=== PATIENT | male | born 1955 | race Caucasian/White ===

== ENCOUNTER 2020-09-30 18:32 | Inpatient (IN) | payer BC, MEDICAID, SELFPAY ==
[~2020-09-30] VITALS: Ht 172.7 cm; Wt 89.8 kg
[2020-09-30 18:32] VITALS: BP_SYST 144
[2020-09-30 21:23] LABS: ANION GAP 12 (5-15); CALCIUM 7.9 mg/dL (8.4-11.0); CHLORIDE 100 mmol/L (98-107); CREATININE 1.04 mg/dL (0.55-1.30); GLUCOSE 308 mg/dL (70-99); POTASSIUM 3.4 mmol/L (3.5-5.1); SODIUM SERUM 136 mmol/L (136-145); UREA NITROGEN, BLOOD 18 mg/dL (8-21)
[2020-09-30 21:26] LABS: BASOPHILS % (AUTO) 0.2 % (0.0-2.0); EOSINOPHILS # (AUTO) 0.1 K/uL (0.0-0.4); LYMPHOCYTES # (AUTO) 0.8 K/uL (1.0-5.5); MONOCYTES # (AUTO) 0.3 K/uL (0.0-1.0); MONOCYTES % (AUTO) 3.7 % (1.7-9.3)
[2020-09-30 21:33] LABS: HEMATOCRIT 39.5 % (36-54); HEMOGLOBIN 13.4 g/dL (14.0-18.0); LYMPHOCYTES % (AUTO) 10.2 % (20.5-51.5); MEAN CORPUSCULAR HEMOGLOBIN 31 pg (27-31); MEAN CORPUSCULAR HGB CONC 34 % (32-36); MEAN CORPUSCULAR VOLUME 92 fL (79.0-98.0); NEUTROPHILS # (AUTO) 6.8 K/uL (1.8-7.7); NEUTROPHILS % (AUTO) 84.9 % (40.0-70.0); PLATELET COUNT (AUTO) 194 K/uL (130-430); RED CELL DISTRIBUTION WIDTH 13.5 % (9.0-15.0)
[2020-09-30 21:38] LABS: ALANINE AMINOTRANSFERASE 20 U/L (12-78); ALBUMIN 2.2 g/dL (3.4-4.8); ASPARTATE AMINOTRANSFERASE 16 U/L (10-37); TOTAL BILIRUBIN 0.6 mg/dL (0.0-1.0)
[2020-09-30 21:41] LABS: GFR AFRICAN AMERICAN 92 mL/min (>90)
[2020-09-30 21:42] LABS: ACETAMINOPHEN < 1 ug/mL (1-30); ALCOHOL, BLOOD < 3 mg/dL (<10)
[2020-09-30 22:35] LABS: INR 1.1 (0.80-1.20); PROTHROMBIN TIME 11.2 SECS (9.5-12.5)
[2020-10-01] MEDS ORDERED: cefTRIAXone 1 GM in D5W 50 ML IV ONE (01:00)
[2020-10-01] MEDS ORDERED: VANCOMYCIN HCL 1,000 MG in NS 250 ML IV ONE (01:00)
[2020-10-01] MEDS ORDERED: NACL 0.9% 1,000 ML IV ONE (01:00)
[2020-10-01] MEDS ORDERED: DEXAMETHASONE SOD PHOSPHATE 10 MG/ML VIAL IVP ONE (01:15)
[2020-10-01] MEDS ORDERED: VANCOMYCIN HCL 1000 MG/VIAL IV ONE (01:40)
[2020-10-01] MEDS ORDERED: cefTRIAXone 1 GM VIAL ONE (01:41)
[2020-10-01 01:44] LABS: CLARITY/URINE CLEAR (CLEAR); COLOR,URINE YELLOW (YELLOW); PH,URINE 5.5 (5.0-8.0)
[2020-10-01 01:45] LABS: BILIRUBIN,URINE NEGATIVE (NEGATIVE); BLOOD, URINE 1+ (NEGATIVE); GLUCOSE,URINE 3+ (NEGATIVE); KETONES,URINE 3+ (NEGATIVE); LEUKOCYTE ESTERASE ,URINE NEGATIVE (NEGATIVE); NITRITE, URINE NEGATIVE (NEGATIVE); PROTEIN URINE 1+ (NEGATIVE)
[2020-10-01 01:46] LABS: BACTERIA,URINE None Seen /HPF (None Seen); WBC,URINE 0-3 /HPF (0-3)
[2020-10-01] MEDS ORDERED: AZITHROMYCIN 500 MG/VIAL (ZITHROMAX) IV ONE (02:54)
[2020-10-01] MEDS: AZITHROMYCIN 500 MG in NS 250 ML IV SCH (05:16)
[2020-10-01] MEDS: ALBUTEROL SULFATE 0.083% 2.5 MG/3 ML VIAL.NEB INH SCH ×4 (07:00→19:00)
[2020-10-01] MEDS ORDERED: *LOVENOX 1MG/KG Q12H/PHARMACY XX ONE (08:30)
[2020-10-01] MEDS ORDERED: IPRATROPIUM/ALBUTEROL SULFATE 3 ML AMPUL.NEB (DUONEB) INH PRN (08:45)
[2020-10-01] MEDS: DEXAMETHASONE SOD PHOSPHATE 10 MG/ML VIAL IVP SCH (08:49)
[2020-10-01] MEDS: CHOLECALCIFEROL (VITAMIN D3) 5,000 UNIT TABLET PO SCH (09:00)
[2020-10-01] MEDS ORDERED: ALBUTEROL MDI INHALATION 8 GM INH INH SCH ×2 (09:00→19:00)
[2020-10-01] MEDS ORDERED: POTASSIUM CHLORIDE 40 MEQ in D5W 250 ML IV ONE (09:00)
[2020-10-01] MEDS: MAGNESIUM OXIDE 400 MG TABLET PO SCH ×2 (09:00→20:54)
[2020-10-01] MEDS: ENOXAPARIN SODIUM 100 MG/ML SYRINGE SUBCUT SCH ×2 (09:17→20:54)
[2020-10-01] MEDS: D5LR 1,000 ML IV SCH ×2 (09:17→21:09)
[2020-10-01] MEDS: cefTRIAXone 1 GM in D5W 50 ML IV SCH (10:52)
[2020-10-01] MEDS: IPRATROPIUM/ALBUTEROL SULFATE 3 ML AMPUL.NEB (DUONEB) INH SCH ×4 (11:00→23:00)
[2020-10-01 13:09] LABS: BASOPHILS % (AUTO) 0.9 % (0.0-2.0); EOSINOPHILS % (AUTO) 0.1 % (0.0-4.0); HEMATOCRIT 40.4 % (36-54); HEMOGLOBIN 13.5 g/dL (14.0-18.0); LYMPHOCYTES # (AUTO) 0.3 K/uL (1.0-5.5); LYMPHOCYTES % (AUTO) 5.7 % (20.5-51.5); MEAN CORPUSCULAR HEMOGLOBIN 31 pg (27-31); MEAN CORPUSCULAR HGB CONC 33 % (32-36); MEAN CORPUSCULAR VOLUME 93 fL (79.0-98.0); MONOCYTES # (AUTO) 0.1 K/uL (0.0-1.0); MONOCYTES % (AUTO) 1.7 % (1.7-9.3); NEUTROPHILS # (AUTO) 4.6 K/uL (1.8-7.7); NEUTROPHILS % (AUTO) 91.6 % (40.0-70.0); PLATELET COUNT (AUTO) 174 K/uL (130-430); RED BLOOD CELL COUNT(AUTO) 4.35 MIL/uL (4.2-6.2); RED CELL DISTRIBUTION WIDTH 13.9 % (9.0-15.0)
[2020-10-01 13:31] LABS: CALCIUM 8.4 mg/dL (8.4-11.0); CREATININE 1.14 mg/dL (0.55-1.30); POTASSIUM 4.3 mmol/L (3.5-5.1)
[2020-10-01] MEDS ORDERED: PROPOFOL DRIP 100 ML IV ONE (15:28)
[2020-10-01] MEDS ORDERED: fentaNYL CITRATE/PF 100 MCG/2 ML AMP ONE (15:36)
[2020-10-01 18:03] VITALS: BP_SYST 155
[2020-10-01] MEDS ORDERED: SODIUM BICARBONATE 8.4% VIAL 50 MEQ/50 ML VIAL INJ ONE (19:00)
[2020-10-01] MEDS ORDERED: ENOXAPARIN SODIUM 100 MG/ML SYRINGE ONE (20:35)
[2020-10-01] MEDS ORDERED: FAMOTIDINE PF 20 MG/2 ML VIAL ONE (22:18)
[2020-10-01] MEDS ORDERED: LORazepam 2 MG/ML VIAL IVP PRN (22:45)
[2020-10-01] MEDS: FAMOTIDINE PF 20 MG/2 ML VIAL IVP SCH (22:59)
[2020-10-02] MEDS: AZITHROMYCIN 500 MG in NS 250 ML IV SCH (01:20)
[2020-10-02] MEDS ORDERED: ACETAMINOPHEN 650 MG/20.3 ML UDC ONE ×3 (01:38→16:41)
[2020-10-02] MEDS ORDERED: LORazepam 2 MG/ML VIAL ONE (01:39)
[2020-10-02 01:44] LABS: BARBITURATE, URINE NEGATIVE (NEG <=200); BENZODIAZEPINE, URINE NEGATIVE (NEG <=150); CANNABINOID, URINE NEGATIVE (NEG <=50); COCAINE, URINE NEGATIVE (NEG <=150); METHAMPHETAMINES SCREEN,URINE NEGATIVE (NEG <=500); OPIATE, URINE NEGATIVE (NEG <=100); PHENCYCLIDINE SCREEN,URINE NEGATIVE (NEG <=25); UR TRICYCLIC ANTIDEPRESSANTS NEGATIVE (NEG <=300); URINE AMPHETAMINE NEGATIVE (NEG <=500); URINE METHADONE NEGATIVE (NEG <=200); URINE OXYCODONE SCREEN NEGATIVE (NEG <=100); URINE PROPOXYPHENE SCREEN NEGATIVE (NEG <=300)
[2020-10-02] MEDS: D5LR 1,000 ML IV SCH (04:45)
[2020-10-02] MEDS ORDERED: DEXAMETHASONE SOD PHOSPHATE 4 MG/ML VIAL ONE (06:11)
[2020-10-02 07:17] VITALS: BP_SYST 109
[2020-10-02 07:22] LABS: BASOPHILS % (AUTO) 0.3 % (0.0-2.0); HEMATOCRIT 39.7 % (36-54); HEMOGLOBIN 12.4 g/dL (14.0-18.0); LYMPHOCYTES # (AUTO) 0.5 K/uL (1.0-5.5); LYMPHOCYTES % (AUTO) 5.3 % (20.5-51.5); MEAN CORPUSCULAR HEMOGLOBIN 32 pg (27-31); MEAN CORPUSCULAR HGB CONC 31 % (32-36); MEAN CORPUSCULAR VOLUME 101 fL (79.0-98.0); MONOCYTES % (AUTO) 9.7 % (1.7-9.3); NEUTROPHILS # (AUTO) 8.8 K/uL (1.8-7.7); NEUTROPHILS % (AUTO) 84.7 % (40.0-70.0); PLATELET COUNT (AUTO) 206 K/uL (130-430); RED BLOOD CELL COUNT(AUTO) 3.94 MIL/uL (4.2-6.2); RED CELL DISTRIBUTION WIDTH 15.6 % (9.0-15.0); WHITE BLOOD COUNT (AUTO) 10.4 K/uL (4.8-10.8)
[2020-10-02] MEDS: ALBUTEROL SULFATE 0.083% 2.5 MG/3 ML VIAL.NEB INH SCH ×3 (08:05→15:15)
[2020-10-02] MEDS ORDERED: NS 500 ML IV SCH (08:45)
[2020-10-02] MEDS ORDERED: NACL 0.9% 1,000 ML IV SCH (08:45)
[2020-10-02] MEDS ORDERED: MAGNESIUM SULFATE 50 ML IV PRN (08:45)
[2020-10-02] MEDS ORDERED: DEXTROSE 50% JECT 50 ML DISP.SYRIN IVP PRN (08:45)
[2020-10-02] MEDS ORDERED: KCL 20 mEq in 100 mL (PREMIX) 100 ML IV PRN (08:45)
[2020-10-02 09:12] LABS: BASOPHILS % (AUTO) 0.3 % (0.0-2.0); HEMATOCRIT 40.2 % (36-54); HEMOGLOBIN 12.5 g/dL (14.0-18.0); LYMPHOCYTES # (AUTO) 0.6 K/uL (1.0-5.5); LYMPHOCYTES % (AUTO) 5.7 % (20.5-51.5); MEAN CORPUSCULAR HEMOGLOBIN 31 pg (27-31); MEAN CORPUSCULAR HGB CONC 31 % (32-36); MEAN CORPUSCULAR VOLUME 100 fL (79.0-98.0); MONOCYTES # (AUTO) 0.9 K/uL (0.0-1.0); MONOCYTES % (AUTO) 9.4 % (1.7-9.3); NEUTROPHILS # (AUTO) 8.4 K/uL (1.8-7.7); NEUTROPHILS % (AUTO) 84.6 % (40.0-70.0); PLATELET COUNT (AUTO) 217 K/uL (130-430); RED BLOOD CELL COUNT(AUTO) 4.03 MIL/uL (4.2-6.2); RED CELL DISTRIBUTION WIDTH 14.9 % (9.0-15.0)
[2020-10-02 09:38] LABS: ALANINE AMINOTRANSFERASE 23 U/L (12-78); ANION GAP 16 (5-15); CALCIUM 7.6 mg/dL (8.4-11.0); CHLORIDE 100 mmol/L (98-107); CREATININE 3.63 mg/dL (0.55-1.30); PHOSPHORUS 6.4 mg/dL (2.7-4.5); SODIUM SERUM 135 mmol/L (136-145); TOTAL BILIRUBIN 0.2 mg/dL (0.0-1.0); UREA NITROGEN, BLOOD 68 mg/dL (8-21)
[2020-10-02] MEDS ORDERED: INSULIN REGULAR, HUMAN 10 UNITS/0.1 ML INJ ONE (09:49)
[2020-10-02 10:12] LABS: GFR AFRICAN AMERICAN 22 mL/min (>90); GLUCOSE 1033 mg/dL (70-99)
[2020-10-02 10:13] LABS: ASPARTATE AMINOTRANSFERASE 37 U/L (10-37); POTASSIUM 6.1 mmol/L (3.5-5.1)
[2020-10-02 10:18] LABS: ACETONE, SERUM TRACE (NEGATIVE)
[2020-10-02] MEDS ORDERED: PROPOFOL DRIP 100 ML IV ONE ×3 (10:18→19:27)
[2020-10-02] MEDS: NACL 0.9% 1,000 ML IV SCH ×3 (11:10→23:20)
[2020-10-02 11:19] VITALS: BP_SYST 119
[2020-10-02] MEDS ORDERED: *HEPARIN PER PHARMACY XX ONE (11:45)
[2020-10-02] MEDS ORDERED: FAMOTIDINE PF 20 MG/2 ML VIAL ONE ×2 (11:50→22:05)
[2020-10-02] MEDS: DEXAMETHASONE SOD PHOSPHATE 10 MG/ML VIAL IVP SCH (11:51)
[2020-10-02] MEDS: FAMOTIDINE PF 20 MG/2 ML VIAL IVP SCH ×2 (11:52→22:12)
[2020-10-02] MEDS: CHOLECALCIFEROL (VITAMIN D3) 5,000 UNIT TABLET PO SCH (11:52)
[2020-10-02] MEDS: cefTRIAXone 1 GM in D5W 50 ML IV SCH (11:53)
[2020-10-02] MEDS: ACETAMINOPHEN 650 MG/20.3 ML UDC GT PRN ×2 (11:53→18:22)
[2020-10-02] MEDS: MAGNESIUM OXIDE 400 MG TABLET PO SCH (11:55)
[2020-10-02 12:51] LABS: CLARITY/URINE HAZY (CLEAR); COLOR,URINE STRAW (YELLOW)
[2020-10-02 12:53] LABS: PH,URINE 5.5 (5.0-8.0)
[2020-10-02 12:54] LABS: BILIRUBIN,URINE NEGATIVE (NEGATIVE); BLOOD, URINE 3+ (NEGATIVE); GLUCOSE,URINE NEGATIVE (NEGATIVE); KETONES,URINE TRACE (NEGATIVE); PROTEIN URINE NEGATIVE (NEGATIVE)
[2020-10-02 12:55] LABS: LEUKOCYTE ESTERASE ,URINE NEGATIVE (NEGATIVE); NITRITE, URINE NEGATIVE (NEGATIVE); UROBILINOGEN,URINE 0.2 (0.2-1.0)
[2020-10-02 12:57] LABS: BACTERIA,URINE None Seen /HPF (None Seen); TRICHOMONAS,URINE None Seen /HPF (None Seen); WBC,URINE NONE SEEN /HPF (0-3); YEAST,URINE None Seen /HPF (None Seen)
[2020-10-02 13:27] LABS: PROTHROMBIN TIME 10.5 SECS (9.5-12.5)
[2020-10-02] MEDS ORDERED: HEPARIN SODIUM,PORCINE 2000 UNITS/0.4 ML BOLUS IVP PRN (13:45)
[2020-10-02] MEDS ORDERED: HEPARIN SODIUM,PORCINE 3000 UNITS/0.6 ML BOLUS IVP PRN (13:45)
[2020-10-02] MEDS ORDERED: HEPARIN 25,000 UNITS in 250 ML PREMIX IV PRN (13:45)
[2020-10-02] MEDS ORDERED: HEPARIN SODIUM,PORCINE 5,000 UNITS/ML VIAL IVP ONE (14:00)
[2020-10-02 15:16] VITALS: BP_SYST 119
[2020-10-02] MEDS ORDERED: HEPARIN SODIUM,PORCINE 5,000 UNITS/ML VIAL ONE (15:54)
[2020-10-02 17:10] VITALS: BP_SYST 114
[2020-10-02 17:59] LABS: CREATININE 3.49 mg/dL (0.55-1.30); POTASSIUM 4.7 mmol/L (3.5-5.1)
[2020-10-02 22:00] VITALS: BP_SYST 136
[2020-10-02 22:16] LABS: CALCIUM 8.1 mg/dL (8.4-11.0); CREATININE 3.23 mg/dL (0.55-1.30); POTASSIUM 4.6 mmol/L (3.5-5.1)
[2020-10-02 23:15] VITALS: BP_SYST 122
[2020-10-03] VITALS (22 sets, daily range): BP systolic 109–166
[2020-10-03] MEDS ORDERED: INSULIN REGULAR, HUMAN 10 UNITS/0.1 ML INJ ONE (01:17)
[2020-10-03] MEDS: AZITHROMYCIN 500 MG in NS 250 ML IV SCH (01:53)
[2020-10-03 02:25] LABS: CREATININE 2.87 mg/dL (0.55-1.30); POTASSIUM 4.4 mmol/L (3.5-5.1)
[2020-10-03] MEDS: MAGNESIUM OXIDE 400 MG TABLET PO SCH ×2 (04:04→10:12)
[2020-10-03] MEDS: NACL 0.9% 1,000 ML IV SCH (06:43)
[2020-10-03 07:36] LABS: BASOPHILS % (AUTO) 0.2 % (0.0-2.0); EOSINOPHILS % (AUTO) 0.3 % (0.0-4.0); HEMATOCRIT 38.4 % (36-54); HEMOGLOBIN 12.7 g/dL (14.0-18.0); LYMPHOCYTES # (AUTO) 0.8 K/uL (1.0-5.5); LYMPHOCYTES % (AUTO) 8.2 % (20.5-51.5); MEAN CORPUSCULAR HEMOGLOBIN 31 pg (27-31); MEAN CORPUSCULAR HGB CONC 33 % (32-36); MEAN CORPUSCULAR VOLUME 94 fL (79.0-98.0); MONOCYTES # (AUTO) 0.7 K/uL (0.0-1.0); NEUTROPHILS # (AUTO) 8.3 K/uL (1.8-7.7); NEUTROPHILS % (AUTO) 84.3 % (40.0-70.0); PLATELET COUNT (AUTO) 165 K/uL (130-430); RED CELL DISTRIBUTION WIDTH 14.3 % (9.0-15.0); WHITE BLOOD COUNT (AUTO) 9.8 K/uL (4.8-10.8)
[2020-10-03 08:04] LABS: CALCIUM 7.8 mg/dL (8.4-11.0); CREATININE 2.44 mg/dL (0.55-1.30); PHOSPHORUS 4.2 mg/dL (2.7-4.5); POTASSIUM 4.2 mmol/L (3.5-5.1)
[2020-10-03 09:14] LABS: CALCIUM 7.6 mg/dL (8.4-11.0); CREATININE 2.25 mg/dL (0.55-1.30); POTASSIUM 4.3 mmol/L (3.5-5.1)
[2020-10-03] MEDS: FAMOTIDINE PF 20 MG/2 ML VIAL IVP SCH (10:11)
[2020-10-03] MEDS: cefTRIAXone 1 GM in D5W 50 ML IV SCH (10:12)
[2020-10-03] MEDS: CHOLECALCIFEROL (VITAMIN D3) 5,000 UNIT TABLET PO SCH (10:12)
[2020-10-03 13:17] LABS: C-REACTIVE PROTEIN QUANT 9.6 mg/dL (0-0.5)
[2020-10-03 14:21] LABS: CALCIUM 7.7 mg/dL (8.4-11.0); CREATININE 1.96 mg/dL (0.55-1.30); POTASSIUM 4.4 mmol/L (3.5-5.1)
[2020-10-03] MEDS: INSULIN REGULAR, HUMAN 100 UNITS in NS 99 ML IV PRN ×4 (15:39→18:44)
[2020-10-03] MEDS ORDERED: HEPARIN SODIUM,PORCINE 5,000 UNITS/ML VIAL IVP ONE (16:15)
[2020-10-03] MEDS: HEPARIN 25,000 UNITS in 250 ML PREMIX IV PRN (16:30)
[2020-10-03] MEDS: 0.45% NACL 1,000 ML IV SCH ×2 (16:32→22:44)
[2020-10-03 17:45] LABS: CALCIUM 7.8 mg/dL (8.4-11.0); CREATININE 1.69 mg/dL (0.55-1.30); POTASSIUM 4.5 mmol/L (3.5-5.1)
[2020-10-03 17:56] LABS: INR 1.1 (0.80-1.20); PROTHROMBIN TIME 11.3 SECS (9.5-12.5)
[2020-10-03] MEDS: DILTIAZEM HCL 25 MG/5 ML VIAL IVP PRN (18:44)
[2020-10-03] MEDS: PROPOFOL DRIP 100 ML IV PRN (21:52)
[2020-10-03 22:02] LABS: CALCIUM 7.9 mg/dL (8.4-11.0); CREATININE 1.6 mg/dL (0.55-1.30)
[2020-10-03 22:26] LABS: POTASSIUM 4.5 mmol/L (3.5-5.1)
[2020-10-03] MEDS: DILTIAZEM HCL 90 MG TABLET PO SCH (22:44)
[2020-10-03] MEDS: ACETAMINOPHEN 650 MG/20.3 ML UDC GT PRN (23:02)
[2020-10-03] MEDS ORDERED: ACETAMINOPHEN 650 MG/20.3 ML UDC ONE (23:02)
[2020-10-04] VITALS (31 sets, daily range): BP systolic 103–158
[2020-10-04 02:06] LABS: CALCIUM 7.6 mg/dL (8.4-11.0); CREATININE 1.52 mg/dL (0.55-1.30); POTASSIUM 4.6 mmol/L (3.5-5.1)
[2020-10-04] MEDS: AZITHROMYCIN 500 MG in NS 250 ML IV SCH (02:20)
[2020-10-04] MEDS: DILTIAZEM HCL 90 MG TABLET PO SCH ×3 (05:41→21:23)
[2020-10-04] MEDS: 0.45% NACL 1,000 ML IV SCH (05:41)
[2020-10-04] MEDS: ACETAMINOPHEN 650 MG/20.3 ML UDC GT PRN ×3 (06:55→22:50)
[2020-10-04 07:07] LABS: CALCIUM 7.9 mg/dL (8.4-11.0); CREATININE 1.42 mg/dL (0.55-1.30); POTASSIUM 4.6 mmol/L (3.5-5.1)
[2020-10-04] MEDS: IPRATROPIUM/ALBUTEROL SULFATE 3 ML AMPUL.NEB (DUONEB) INH SCH ×3 (08:05→15:15)
[2020-10-04] MEDS: CHOLECALCIFEROL (VITAMIN D3) 5,000 UNIT TABLET PO SCH (08:31)
[2020-10-04] MEDS: FAMOTIDINE PF 20 MG/2 ML VIAL IVP SCH (08:31)
[2020-10-04] MEDS ORDERED: GLUCOSE (DEXTROSE) ORAL GEL -Adults PO PRN (08:45)
[2020-10-04] MEDS ORDERED: D5W 1,000 ML IV PRN (08:45)
[2020-10-04] MEDS ORDERED: FUROSEMIDE 20 MG/2 ML VIAL IVP ONE (08:45)
[2020-10-04] MEDS ORDERED: DEXTROSE 50% JECT 50 ML DISP.SYRIN IVP PRN (08:45)
[2020-10-04] MEDS ORDERED: INSULIN REGULAR, HUMAN 100 UNITS/ML, 10 ML VIAL (humuLIN R) SUBCUT PRN (08:45)
[2020-10-04] MEDS ORDERED: INSULIN GLARGINE 100 UNITS/ML 10 ML VIAL SUBCUT SCH (09:00)
[2020-10-04 09:20] LABS: CALCIUM 7.9 mg/dL (8.4-11.0); CREATININE 1.41 mg/dL (0.55-1.30); POTASSIUM 4.7 mmol/L (3.5-5.1)
[2020-10-04] MEDS: cefTRIAXone 1 GM in D5W 50 ML IV SCH (09:25)
[2020-10-04] MEDS ORDERED: FUROSEMIDE 20 MG/2 ML VIAL ONE (09:32)
[2020-10-04] MEDS: PROPOFOL DRIP 100 ML IV PRN (10:30)
[2020-10-04] MEDS: INSULIN REGULAR, HUMAN 100 UNITS in NS 99 ML IV PRN ×2 (11:00)
[2020-10-04 13:31] LABS: CALCIUM 7.7 mg/dL (8.4-11.0); CREATININE 1.57 mg/dL (0.55-1.30); POTASSIUM 5.1 mmol/L (3.5-5.1)
[2020-10-04] MEDS: HEPARIN 25,000 UNITS in 250 ML PREMIX IV PRN (14:28)
[2020-10-04] MEDS ORDERED: INSULIN GLARGINE 100 UNITS/ML 10 ML VIAL SUBCUT ONE (16:45)
[2020-10-04] MEDS ORDERED: PANTOPRAZOLE SODIUM 40 MG/VIAL (PROTONIX) IVP ONE (17:00)
[2020-10-04] MEDS ORDERED: PANTOPRAZOLE SODIUM 40 MG/VIAL (PROTONIX) ONE (18:01)
[2020-10-04] MEDS: METOCLOPRAMIDE HCL 10 MG/2 ML VIAL IVP SCH (18:12)
[2020-10-04 19:19] LABS: CALCIUM 7.7 mg/dL (8.4-11.0); CREATININE 1.73 mg/dL (0.55-1.30)
[2020-10-04] MEDS: PANTOPRAZOLE SODIUM 40 MG/VIAL (PROTONIX) IVP SCH (20:08)
[2020-10-04] MEDS: MIDAZOLAM HCL IN 0.9 % NACL/PF 50 ML IV PRN (20:42)
[2020-10-04] MEDS: INSULIN REGULAR, HUMAN 100 UNITS/ML, 10 ML VIAL (humuLIN R) SUBCUT PRN (20:49)
[2020-10-04 22:48] LABS: CALCIUM 7.7 mg/dL (8.4-11.0); CREATININE 1.6 mg/dL (0.55-1.30)
[2020-10-05] VITALS (31 sets, daily range): BP systolic 97–121
[2020-10-05] MEDS: METOCLOPRAMIDE HCL 10 MG/2 ML VIAL IVP SCH ×4 (00:03→18:47)
[2020-10-05] MEDS: INSULIN REGULAR, HUMAN 100 UNITS/ML, 10 ML VIAL (humuLIN R) SUBCUT PRN ×5 (00:23→20:59)
[2020-10-05] MEDS: AZITHROMYCIN 500 MG in NS 250 ML IV SCH (01:15)
[2020-10-05] MEDS: MIDAZOLAM HCL IN 0.9 % NACL/PF 50 ML IV PRN ×3 (05:31→19:29)
[2020-10-05] MEDS: DILTIAZEM HCL 90 MG TABLET PO SCH ×2 (05:35→13:18)
[2020-10-05] MEDS: ACETAMINOPHEN 650 MG/20.3 ML UDC GT PRN ×2 (05:36→11:32)
[2020-10-05 06:02] LABS: BASOPHILS # (AUTO) 0.1 K/uL (0.0-0.2); BASOPHILS % (AUTO) 0.9 % (0.0-2.0); EOSINOPHILS % (AUTO) 0.3 % (0.0-4.0); HEMATOCRIT 37.8 % (36-54); HEMOGLOBIN 12.1 g/dL (14.0-18.0); LYMPHOCYTES # (AUTO) 1.6 K/uL (1.0-5.5); LYMPHOCYTES % (AUTO) 15.3 % (20.5-51.5); MEAN CORPUSCULAR HEMOGLOBIN 31 pg (27-31); MEAN CORPUSCULAR HGB CONC 32 % (32-36); MEAN CORPUSCULAR VOLUME 96 fL (79.0-98.0); MONOCYTES # (AUTO) 0.6 K/uL (0.0-1.0); MONOCYTES % (AUTO) 5.9 % (1.7-9.3); NEUTROPHILS % (AUTO) 77.6 % (40.0-70.0); PLATELET COUNT (AUTO) 110 K/uL (130-430); RED BLOOD CELL COUNT(AUTO) 3.94 MIL/uL (4.2-6.2); RED CELL DISTRIBUTION WIDTH 14.6 % (9.0-15.0); WHITE BLOOD COUNT (AUTO) 10.3 K/uL (4.8-10.8)
[2020-10-05 06:55] LABS: CALCIUM 7.8 mg/dL (8.4-11.0); CREATININE 1.82 mg/dL (0.55-1.30); PHOSPHORUS 4.2 mg/dL (2.7-4.5); POTASSIUM 5.2 mmol/L (3.5-5.1)
[2020-10-05] MEDS: PANTOPRAZOLE SODIUM 40 MG/VIAL (PROTONIX) IVP SCH ×2 (08:22→21:11)
[2020-10-05] MEDS: FAMOTIDINE PF 20 MG/2 ML VIAL IVP SCH (08:22)
[2020-10-05] MEDS: CHOLECALCIFEROL (VITAMIN D3) 5,000 UNIT TABLET PO SCH (08:23)
[2020-10-05] MEDS ORDERED: INSULIN GLARGINE 100 UNITS/ML 10 ML VIAL SUBCUT SCH ×2 (09:00→21:00)
[2020-10-05] MEDS: cefTRIAXone 1 GM in D5W 50 ML IV SCH (10:00)
[2020-10-05] MEDS ORDERED: D5W 500 ML IV ONE (11:45)
[2020-10-05] MEDS ORDERED: THIAMINE HCL 100 MG in NS 50 ML IV ONE (12:30)
[2020-10-05] MEDS ORDERED: INSULIN GLARGINE 100 UNITS/ML 10 ML VIAL SUBCUT ONE (12:30)
[2020-10-05] MEDS ORDERED: ASPIRIN 81 MG TABLET(ECOTRIN) PO ONE (14:15)
[2020-10-05] MEDS ORDERED: ASPIRIN 81 MG TAB.CHEW ONE (15:08)
[2020-10-05 17:44] LABS: CALCIUM 7.4 mg/dL (8.4-11.0); CREATININE 1.65 mg/dL (0.55-1.30); POTASSIUM 4.8 mmol/L (3.5-5.1)
[2020-10-05 21:06] LABS: CALCIUM 7.6 mg/dL (8.4-11.0); CREATININE 1.62 mg/dL (0.55-1.30); POTASSIUM 4.6 mmol/L (3.5-5.1)
[2020-10-05] MEDS: INSULIN GLARGINE 100 UNITS/ML 10 ML VIAL SUBCUT SCH (21:11)
[2020-10-06] VITALS (34 sets, daily range): BP systolic 92–131
[2020-10-06] MEDS: METOCLOPRAMIDE HCL 10 MG/2 ML VIAL IVP SCH ×5 (00:11→23:55)
[2020-10-06] MEDS: DILTIAZEM HCL 90 MG TABLET PO SCH ×4 (00:11→20:58)
[2020-10-06] MEDS: ACETAMINOPHEN 650 MG/20.3 ML UDC GT PRN ×2 (00:12→06:20)
[2020-10-06] MEDS: INSULIN REGULAR, HUMAN 100 UNITS/ML, 10 ML VIAL (humuLIN R) SUBCUT PRN ×4 (00:27→16:54)
[2020-10-06 06:44] LABS: BASOPHILS # (AUTO) 0.1 K/uL (0.0-0.2); BASOPHILS % (AUTO) 1.2 % (0.0-2.0); EOSINOPHILS # (AUTO) 0.1 K/uL (0.0-0.4); EOSINOPHILS % (AUTO) 0.6 % (0.0-4.0); HEMOGLOBIN 12.4 g/dL (14.0-18.0); LYMPHOCYTES # (AUTO) 1.2 K/uL (1.0-5.5); LYMPHOCYTES % (AUTO) 11.6 % (20.5-51.5); MEAN CORPUSCULAR HEMOGLOBIN 31 pg (27-31); MEAN CORPUSCULAR HGB CONC 33 % (32-36); MEAN CORPUSCULAR VOLUME 94 fL (79.0-98.0); MONOCYTES # (AUTO) 0.4 K/uL (0.0-1.0); MONOCYTES % (AUTO) 3.9 % (1.7-9.3); NEUTROPHILS # (AUTO) 8.6 K/uL (1.8-7.7); NEUTROPHILS % (AUTO) 82.7 % (40.0-70.0); PLATELET COUNT (AUTO) 83 K/uL (130-430); RED BLOOD CELL COUNT(AUTO) 4.04 MIL/uL (4.2-6.2); RED CELL DISTRIBUTION WIDTH 14.2 % (9.0-15.0); WHITE BLOOD COUNT (AUTO) 10.4 K/uL (4.8-10.8)
[2020-10-06 07:20] LABS: CALCIUM 7.7 mg/dL (8.4-11.0); CREATININE 1.45 mg/dL (0.55-1.30); PHOSPHORUS 1.9 mg/dL (2.7-4.5); POTASSIUM 4.8 mmol/L (3.5-5.1)
[2020-10-06] MEDS: CHOLECALCIFEROL (VITAMIN D3) 5,000 UNIT TABLET PO SCH (09:00)
[2020-10-06] MEDS: ASPIRIN 81 MG TABLET(ECOTRIN) PO SCH (10:00)
[2020-10-06] MEDS: PANTOPRAZOLE SODIUM 40 MG/VIAL (PROTONIX) IVP SCH ×2 (10:00→20:55)
[2020-10-06] MEDS: FAMOTIDINE PF 20 MG/2 ML VIAL IVP SCH (10:00)
[2020-10-06] MEDS: INSULIN GLARGINE 100 UNITS/ML 10 ML VIAL SUBCUT SCH ×2 (11:00→21:03)
[2020-10-06] MEDS: cefTRIAXone 1 GM in D5W 50 ML IV SCH (11:16)
[2020-10-06] MEDS: THIAMINE HCL 100 MG TABLET GT SCH (11:18)
[2020-10-06] MEDS ORDERED: METOPROLOL TARTRATE 5 MG/5 ML VIAL IVP PRN (12:30)
[2020-10-06] MEDS ORDERED: DEXAMETHASONE SOD PHOSPHATE 10 MG/ML VIAL IVP SCH (13:00)
[2020-10-06] MEDS ORDERED: DEXAMETHASONE SOD PHOSPHATE 10 MG/ML VIAL IVP ONE (13:00)
[2020-10-06 15:15] LABS: PROTHROMBIN TIME 10.5 SECS (9.5-12.5)
[2020-10-06 15:31] LABS: FIBRINOGEN 444 mg/dL (200-400)
[2020-10-06] MEDS: DEXAMETHASONE SOD PHOSPHATE 10 MG/ML VIAL IVP SCH (20:47)
[2020-10-07] VITALS (33 sets, daily range): BP systolic 95–121
[2020-10-07] MEDS: INSULIN REGULAR, HUMAN 100 UNITS/ML, 10 ML VIAL (humuLIN R) SUBCUT PRN ×6 (00:23→20:45)
[2020-10-07] MEDS: DEXAMETHASONE SOD PHOSPHATE 10 MG/ML VIAL IVP SCH ×3 (04:17→20:07)
[2020-10-07] MEDS: ACETAMINOPHEN 650 MG/20.3 ML UDC GT PRN (04:41)
[2020-10-07 06:52] LABS: BASOPHILS % (AUTO) 0.5 % (0.0-2.0); HEMATOCRIT 36.1 % (36-54); HEMOGLOBIN 11.8 g/dL (14.0-18.0); LYMPHOCYTES # (AUTO) 0.4 K/uL (1.0-5.5); LYMPHOCYTES % (AUTO) 5.8 % (20.5-51.5); MEAN CORPUSCULAR HEMOGLOBIN 31 pg (27-31); MEAN CORPUSCULAR HGB CONC 33 % (32-36); MEAN CORPUSCULAR VOLUME 94 fL (79.0-98.0); MONOCYTES # (AUTO) 0.2 K/uL (0.0-1.0); MONOCYTES % (AUTO) 2.6 % (1.7-9.3); NEUTROPHILS # (AUTO) 6.6 K/uL (1.8-7.7); PLATELET COUNT (AUTO) 59 K/uL (130-430); RED BLOOD CELL COUNT(AUTO) 3.85 MIL/uL (4.2-6.2); RED CELL DISTRIBUTION WIDTH 13.6 % (9.0-15.0); WHITE BLOOD COUNT (AUTO) 7.3 K/uL (4.8-10.8)
[2020-10-07] MEDS ORDERED: METOCLOPRAMIDE HCL 10 MG/2 ML VIAL ONE (06:53)
[2020-10-07] MEDS: METOCLOPRAMIDE HCL 10 MG/2 ML VIAL IVP SCH ×3 (06:53→17:07)
[2020-10-07] MEDS: DILTIAZEM HCL 90 MG TABLET PO SCH ×3 (06:53→22:36)
[2020-10-07 07:43] LABS: ALBUMIN 1.5 g/dL (3.4-4.8); CALCIUM 7.8 mg/dL (8.4-11.0); CREATININE 1.79 mg/dL (0.55-1.30); POTASSIUM 5.4 mmol/L (3.5-5.1); TOTAL BILIRUBIN 0.2 mg/dL (0.0-1.0)
[2020-10-07] MEDS: FAMOTIDINE PF 20 MG/2 ML VIAL IVP SCH (08:12)
[2020-10-07] MEDS: PANTOPRAZOLE SODIUM 40 MG/VIAL (PROTONIX) IVP SCH ×2 (08:12→20:08)
[2020-10-07] MEDS: ASPIRIN 81 MG TABLET(ECOTRIN) PO SCH (08:12)
[2020-10-07] MEDS: THIAMINE HCL 100 MG TABLET GT SCH (08:12)
[2020-10-07] MEDS: INSULIN GLARGINE 100 UNITS/ML 10 ML VIAL SUBCUT SCH ×2 (08:14→20:48)
[2020-10-07] MEDS: CHOLECALCIFEROL (VITAMIN D3) 5,000 UNIT TABLET PO SCH (08:17)
[2020-10-07] MEDS: cefTRIAXone 1 GM in D5W 50 ML IV SCH (08:45)
[2020-10-07] MEDS ORDERED: INSULIN GLARGINE 100 UNITS/ML 10 ML VIAL SUBCUT ONE (09:00)
[2020-10-07] MEDS: 0.45% NACL 1,000 ML IV SCH ×2 (09:00→17:07)
[2020-10-07] MEDS ORDERED: SODIUM POLYSTYRENE SULFONATE 15 GM/60 ML UDBTL PO ONE (11:45)
[2020-10-07] MEDS ORDERED: LEVOFLOXACIN 500 MG/D5W 100 ML IV SCH (12:00)
[2020-10-07] MEDS ORDERED: DEXAMETHASONE SOD PHOSPHATE 4 MG/ML VIAL ONE ×2 (12:57→13:01)
[2020-10-07] MEDS ORDERED: DEXAMETHASONE SOD PHOSPHATE 10 MG/ML VIAL ONE ×2 (13:04→20:03)
[2020-10-07 13:34] LABS: NEUTROPHILS % (AUTO) 91.1 % (40.0-70.0)
[2020-10-07] MEDS: CEFEPIME 1 GM in D5W 50 ML IV SCH (15:30)
[2020-10-07] MEDS: MIDAZOLAM HCL IN 0.9 % NACL/PF 50 ML IV PRN (17:18)
[2020-10-07] MEDS ORDERED: INSULIN REGULAR, HUMAN 100 UNITS/ML, 10 ML VIAL SUBCUT ONE (18:15)
[2020-10-07] MEDS ORDERED: INSULIN GLARGINE 100 UNITS/ML 10 ML VIAL SUBCUT SCH (21:00)
[2020-10-08] VITALS (31 sets, daily range): BP systolic 90–128
[2020-10-08] MEDS: METOCLOPRAMIDE HCL 10 MG/2 ML VIAL IVP SCH ×5 (00:27→23:00)
[2020-10-08] MEDS: 0.45% NACL 1,000 ML IV SCH ×4 (00:28→17:34)
[2020-10-08] MEDS: INSULIN REGULAR, HUMAN 100 UNITS/ML, 10 ML VIAL (humuLIN R) SUBCUT PRN ×6 (00:46→20:43)
[2020-10-08] MEDS ORDERED: DEXAMETHASONE SOD PHOSPHATE 4 MG/ML VIAL ONE ×2 (03:41→20:18)
[2020-10-08] MEDS: DEXAMETHASONE SOD PHOSPHATE 10 MG/ML VIAL IVP SCH ×3 (03:43→20:24)
[2020-10-08] MEDS: DILTIAZEM HCL 90 MG TABLET PO SCH ×3 (05:21→23:00)
[2020-10-08 07:01] LABS: BASOPHILS % (AUTO) 0.3 % (0.0-2.0); HEMATOCRIT 32.7 % (36-54); HEMOGLOBIN 10.7 g/dL (14.0-18.0); LYMPHOCYTES # (AUTO) 0.5 K/uL (1.0-5.5); LYMPHOCYTES % (AUTO) 7.1 % (20.5-51.5); MEAN CORPUSCULAR HEMOGLOBIN 31 pg (27-31); MEAN CORPUSCULAR HGB CONC 33 % (32-36); MEAN CORPUSCULAR VOLUME 94 fL (79.0-98.0); MONOCYTES # (AUTO) 0.3 K/uL (0.0-1.0); MONOCYTES % (AUTO) 4.5 % (1.7-9.3); NEUTROPHILS # (AUTO) 5.6 K/uL (1.8-7.7); NEUTROPHILS % (AUTO) 88.1 % (40.0-70.0); PLATELET COUNT (AUTO) 52 K/uL (130-430); RED BLOOD CELL COUNT(AUTO) 3.49 MIL/uL (4.2-6.2); RED CELL DISTRIBUTION WIDTH 13.7 % (9.0-15.0); WHITE BLOOD COUNT (AUTO) 6.4 K/uL (4.8-10.8)
[2020-10-08 07:24] LABS: ALBUMIN 1.4 g/dL (3.4-4.8); CALCIUM 7.5 mg/dL (8.4-11.0); CREATININE 1.57 mg/dL (0.55-1.30); POTASSIUM 4.5 mmol/L (3.5-5.1); TOTAL BILIRUBIN 0.3 mg/dL (0.0-1.0)
[2020-10-08] MEDS: ASPIRIN 81 MG TABLET(ECOTRIN) PO SCH (08:55)
[2020-10-08] MEDS: THIAMINE HCL 100 MG TABLET GT SCH (08:56)
[2020-10-08] MEDS: FAMOTIDINE PF 20 MG/2 ML VIAL IVP SCH (08:56)
[2020-10-08] MEDS: PANTOPRAZOLE SODIUM 40 MG/VIAL (PROTONIX) IVP SCH ×2 (08:56→20:21)
[2020-10-08] MEDS: CHOLECALCIFEROL (VITAMIN D3) 5,000 UNIT TABLET PO SCH (09:00)
[2020-10-08] MEDS: INSULIN GLARGINE 100 UNITS/ML 10 ML VIAL SUBCUT SCH ×2 (09:05→20:41)
[2020-10-08] MEDS ORDERED: DEXAMETHASONE SOD PHOSPHATE 10 MG/ML VIAL ONE (11:23)
[2020-10-08] MEDS: CEFEPIME 1 GM in D5W 50 ML IV SCH (14:13)
[2020-10-09] VITALS (30 sets, daily range): BP systolic 111–160
[2020-10-09] MEDS: 0.45% NACL 1,000 ML IV SCH ×4 (00:44→22:47)
[2020-10-09] MEDS: INSULIN REGULAR, HUMAN 100 UNITS/ML, 10 ML VIAL (humuLIN R) SUBCUT PRN ×7 (00:55→23:59)
[2020-10-09] MEDS ORDERED: DEXAMETHASONE SOD PHOSPHATE 4 MG/ML VIAL ONE (04:30)
[2020-10-09] MEDS: DEXAMETHASONE SOD PHOSPHATE 10 MG/ML VIAL IVP SCH ×3 (04:31→20:00)
[2020-10-09] MEDS: METOCLOPRAMIDE HCL 10 MG/2 ML VIAL IVP SCH ×4 (06:00→23:44)
[2020-10-09] MEDS: DILTIAZEM HCL 90 MG TABLET PO SCH ×3 (06:00→21:52)
[2020-10-09 06:52] LABS: BASOPHILS % (AUTO) 0.2 % (0.0-2.0); HEMATOCRIT 30.9 % (36-54); HEMOGLOBIN 10.5 g/dL (14.0-18.0); LYMPHOCYTES # (AUTO) 0.5 K/uL (1.0-5.5); LYMPHOCYTES % (AUTO) 5.9 % (20.5-51.5); MEAN CORPUSCULAR HEMOGLOBIN 31 pg (27-31); MEAN CORPUSCULAR HGB CONC 34 % (32-36); MEAN CORPUSCULAR VOLUME 92 fL (79.0-98.0); MONOCYTES # (AUTO) 0.3 K/uL (0.0-1.0); MONOCYTES % (AUTO) 4.5 % (1.7-9.3); NEUTROPHILS % (AUTO) 89.4 % (40.0-70.0); RED BLOOD CELL COUNT(AUTO) 3.37 MIL/uL (4.2-6.2); RED CELL DISTRIBUTION WIDTH 13.4 % (9.0-15.0); WHITE BLOOD COUNT (AUTO) 7.8 K/uL (4.8-10.8)
[2020-10-09 07:16] LABS: CALCIUM 7.4 mg/dL (8.4-11.0); CREATININE 1.26 mg/dL (0.55-1.30); POTASSIUM 4.5 mmol/L (3.5-5.1)
[2020-10-09] MEDS: THIAMINE HCL 100 MG TABLET GT SCH (09:51)
[2020-10-09] MEDS: FAMOTIDINE PF 20 MG/2 ML VIAL IVP SCH (09:51)
[2020-10-09] MEDS: ASPIRIN 81 MG TABLET(ECOTRIN) PO SCH (09:51)
[2020-10-09] MEDS: PANTOPRAZOLE SODIUM 40 MG/VIAL (PROTONIX) IVP SCH ×2 (09:51→21:52)
[2020-10-09] MEDS: CHOLECALCIFEROL (VITAMIN D3) 5,000 UNIT TABLET PO SCH (09:53)
[2020-10-09] MEDS: INSULIN GLARGINE 100 UNITS/ML 10 ML VIAL SUBCUT SCH ×2 (09:55→21:00)
[2020-10-09] MEDS ORDERED: DEXAMETHASONE SOD PHOSPHATE 10 MG/ML VIAL ONE (12:00)
[2020-10-09 14:18] LABS: PLATELET COUNT (AUTO) 55 K/uL (130-430)
[2020-10-09] MEDS: CEFEPIME 1 GM in D5W 50 ML IV SCH (14:44)
[2020-10-10] VITALS (29 sets, daily range): BP systolic 120–155
[2020-10-10] MEDS ORDERED: DEXAMETHASONE SOD PHOSPHATE 4 MG/ML VIAL ONE ×3 (02:21→20:17)
[2020-10-10] MEDS: DEXAMETHASONE SOD PHOSPHATE 10 MG/ML VIAL IVP SCH ×3 (03:32→20:18)
[2020-10-10] MEDS: INSULIN REGULAR, HUMAN 100 UNITS/ML, 10 ML VIAL (humuLIN R) SUBCUT PRN ×4 (03:49→19:44)
[2020-10-10] MEDS: 0.45% NACL 1,000 ML IV SCH ×2 (04:54→12:41)
[2020-10-10] MEDS: DILTIAZEM HCL 90 MG TABLET PO SCH ×3 (04:54→22:07)
[2020-10-10] MEDS: METOCLOPRAMIDE HCL 10 MG/2 ML VIAL IVP SCH ×3 (05:01→18:00)
[2020-10-10 07:50] LABS: ALBUMIN 1.7 g/dL (3.4-4.8); CALCIUM 7.5 mg/dL (8.4-11.0); CREATININE 1.01 mg/dL (0.55-1.30); POTASSIUM 4.8 mmol/L (3.5-5.1); TOTAL BILIRUBIN 0.3 mg/dL (0.0-1.0)
[2020-10-10 08:26] LABS: BASOPHILS % (AUTO) 0.2 % (0.0-2.0); HEMATOCRIT 33.9 % (36-54); HEMOGLOBIN 11.4 g/dL (14.0-18.0); LYMPHOCYTES # (AUTO) 0.5 K/uL (1.0-5.5); LYMPHOCYTES % (AUTO) 4.8 % (20.5-51.5); MEAN CORPUSCULAR HEMOGLOBIN 31 pg (27-31); MEAN CORPUSCULAR HGB CONC 34 % (32-36); MEAN CORPUSCULAR VOLUME 92 fL (79.0-98.0); MONOCYTES # (AUTO) 0.6 K/uL (0.0-1.0); MONOCYTES % (AUTO) 5.7 % (1.7-9.3); NEUTROPHILS # (AUTO) 9.5 K/uL (1.8-7.7); NEUTROPHILS % (AUTO) 89.3 % (40.0-70.0); PLATELET COUNT (AUTO) 57 K/uL (130-430); RED BLOOD CELL COUNT(AUTO) 3.67 MIL/uL (4.2-6.2); RED CELL DISTRIBUTION WIDTH 13.5 % (9.0-15.0); WHITE BLOOD COUNT (AUTO) 10.7 K/uL (4.8-10.8)
[2020-10-10] MEDS: ASPIRIN 81 MG TABLET(ECOTRIN) PO SCH (09:12)
[2020-10-10] MEDS: FAMOTIDINE PF 20 MG/2 ML VIAL IVP SCH ×2 (09:13→20:15)
[2020-10-10] MEDS: PANTOPRAZOLE SODIUM 40 MG/VIAL (PROTONIX) IVP SCH (09:13)
[2020-10-10] MEDS: THIAMINE HCL 100 MG TABLET GT SCH (09:13)
[2020-10-10] MEDS: ENOXAPARIN SODIUM 40 MG/0.4 ML SYRINGE SUBCUT SCH (09:13)
[2020-10-10] MEDS: CHOLECALCIFEROL (VITAMIN D3) 5,000 UNIT TABLET PO SCH (10:03)
[2020-10-10] MEDS: INSULIN GLARGINE 100 UNITS/ML 10 ML VIAL SUBCUT SCH ×2 (10:30→20:20)
[2020-10-10] MEDS: LEVOFLOXACIN 500 MG/D5W 100 ML IV SCH (15:00)
[2020-10-10] MEDS ORDERED: DILTIAZEM HCL 30 MG TABLET ONE (15:14)
[2020-10-10] MEDS ORDERED: DILTIAZEM HCL 60 MG TABLET ONE (15:15)
[2020-10-11] VITALS (34 sets, daily range): BP systolic 125–180
[2020-10-11] MEDS: METOCLOPRAMIDE HCL 10 MG/2 ML VIAL IVP SCH ×4 (00:03→17:49)
[2020-10-11] MEDS: INSULIN REGULAR, HUMAN 100 UNITS/ML, 10 ML VIAL (humuLIN R) SUBCUT PRN ×5 (00:21→18:06)
[2020-10-11] MEDS ORDERED: DEXAMETHASONE SOD PHOSPHATE 4 MG/ML VIAL ONE ×3 (05:27→20:57)
[2020-10-11] MEDS: DEXAMETHASONE SOD PHOSPHATE 10 MG/ML VIAL IVP SCH ×3 (05:29→21:00)
[2020-10-11] MEDS: DILTIAZEM HCL 90 MG TABLET PO SCH ×3 (05:30→21:00)
[2020-10-11] MEDS: 0.45% NACL 1,000 ML IV SCH ×2 (05:48→12:31)
[2020-10-11] MEDS: ALBUTEROL SULFATE 0.083% 2.5 MG/3 ML VIAL.NEB INH SCH ×3 (07:00→15:00)
[2020-10-11] MEDS: IPRATROPIUM/ALBUTEROL SULFATE 3 ML AMPUL.NEB (DUONEB) INH SCH ×3 (07:00→15:00)
[2020-10-11 08:50] LABS: ALBUMIN 1.7 g/dL (3.4-4.8); CALCIUM 7.2 mg/dL (8.4-11.0); CREATININE 0.88 mg/dL (0.55-1.30); PHOSPHORUS 3.6 mg/dL (2.7-4.5); POTASSIUM 4.7 mmol/L (3.5-5.1); TOTAL BILIRUBIN 0.3 mg/dL (0.0-1.0)
[2020-10-11 09:14] LABS: BASOPHILS % (AUTO) 0.1 % (0.0-2.0); HEMATOCRIT 31.2 % (36-54); HEMOGLOBIN 10.4 g/dL (14.0-18.0); LYMPHOCYTES # (AUTO) 0.5 K/uL (1.0-5.5); LYMPHOCYTES % (AUTO) 3.6 % (20.5-51.5); MEAN CORPUSCULAR HEMOGLOBIN 31 pg (27-31); MEAN CORPUSCULAR HGB CONC 34 % (32-36); MEAN CORPUSCULAR VOLUME 92 fL (79.0-98.0); MONOCYTES # (AUTO) 0.7 K/uL (0.0-1.0); MONOCYTES % (AUTO) 4.7 % (1.7-9.3); NEUTROPHILS # (AUTO) 13.5 K/uL (1.8-7.7); NEUTROPHILS % (AUTO) 91.6 % (40.0-70.0); RED BLOOD CELL COUNT(AUTO) 3.39 MIL/uL (4.2-6.2); RED CELL DISTRIBUTION WIDTH 13.1 % (9.0-15.0)
[2020-10-11] MEDS: ASPIRIN 81 MG TABLET(ECOTRIN) PO SCH (09:48)
[2020-10-11] MEDS: ENOXAPARIN SODIUM 40 MG/0.4 ML SYRINGE SUBCUT SCH (09:48)
[2020-10-11] MEDS: FAMOTIDINE PF 20 MG/2 ML VIAL IVP SCH ×2 (09:49→21:00)
[2020-10-11] MEDS: THIAMINE HCL 100 MG TABLET GT SCH (09:49)
[2020-10-11] MEDS: CHOLECALCIFEROL (VITAMIN D3) 5,000 UNIT TABLET PO SCH (09:49)
[2020-10-11] MEDS: INSULIN GLARGINE 100 UNITS/ML 10 ML VIAL SUBCUT SCH ×2 (09:53→21:03)
[2020-10-11 09:55] LABS: WHITE BLOOD COUNT (AUTO) 14.7 K/uL (4.8-10.8)
[2020-10-11 12:49] LABS: PLATELET COUNT (AUTO) 56 K/uL (130-430)
[2020-10-11] MEDS: LEVOFLOXACIN 500 MG/D5W 100 ML IV SCH (15:00)
[2020-10-12] VITALS (32 sets, daily range): BP systolic 130–157
[2020-10-12] MEDS: METOCLOPRAMIDE HCL 10 MG/2 ML VIAL IVP SCH ×4 (00:41→17:32)
[2020-10-12] MEDS: INSULIN REGULAR, HUMAN 100 UNITS/ML, 10 ML VIAL (humuLIN R) SUBCUT PRN ×3 (01:13→17:34)
[2020-10-12] MEDS ORDERED: DEXAMETHASONE SOD PHOSPHATE 4 MG/ML VIAL ONE (05:34)
[2020-10-12] MEDS: DEXAMETHASONE SOD PHOSPHATE 10 MG/ML VIAL IVP SCH ×2 (05:35→12:46)
[2020-10-12] MEDS: DILTIAZEM HCL 90 MG TABLET PO SCH ×3 (05:37→21:53)
[2020-10-12] MEDS: 0.45% NACL 1,000 ML IV SCH (08:22)
[2020-10-12] MEDS: THIAMINE HCL 100 MG TABLET GT SCH (08:23)
[2020-10-12] MEDS: ENOXAPARIN SODIUM 40 MG/0.4 ML SYRINGE SUBCUT SCH (08:23)
[2020-10-12] MEDS: ASPIRIN 81 MG TABLET(ECOTRIN) PO SCH (08:23)
[2020-10-12] MEDS: CHOLECALCIFEROL (VITAMIN D3) 5,000 UNIT TABLET PO SCH (08:23)
[2020-10-12] MEDS: FAMOTIDINE PF 20 MG/2 ML VIAL IVP SCH ×2 (08:23→21:49)
[2020-10-12] MEDS: INSULIN GLARGINE 100 UNITS/ML 10 ML VIAL SUBCUT SCH ×2 (08:25→21:57)
[2020-10-12] MEDS: LEVOFLOXACIN 500 MG/D5W 100 ML IV SCH (15:00)
[2020-10-12] MEDS: DEXAMETHASONE SOD PHOSPHATE 4 MG/ML VIAL IVP SCH (22:00)
[2020-10-13] VITALS (31 sets, daily range): BP systolic 124–157
[2020-10-13] MEDS: INSULIN REGULAR, HUMAN 100 UNITS/ML, 10 ML VIAL (humuLIN R) SUBCUT PRN ×3 (02:47→23:50)
[2020-10-13] MEDS: METOCLOPRAMIDE HCL 10 MG/2 ML VIAL IVP SCH ×5 (02:51→22:56)
[2020-10-13] MEDS: DEXAMETHASONE SOD PHOSPHATE 4 MG/ML VIAL IVP SCH ×3 (06:00→22:53)
[2020-10-13] MEDS: DILTIAZEM HCL 90 MG TABLET PO SCH ×3 (06:51→22:55)
[2020-10-13 07:26] LABS: BASOPHILS % (AUTO) 0.1 % (0.0-2.0); EOSINOPHILS % (AUTO) 0.1 % (0.0-4.0); HEMATOCRIT 29.2 % (36-54); HEMOGLOBIN 9.8 g/dL (14.0-18.0); LYMPHOCYTES # (AUTO) 0.9 K/uL (1.0-5.5); MEAN CORPUSCULAR HEMOGLOBIN 30 pg (27-31); MEAN CORPUSCULAR HGB CONC 33 % (32-36); MEAN CORPUSCULAR VOLUME 91 fL (79.0-98.0); MONOCYTES # (AUTO) 0.6 K/uL (0.0-1.0); MONOCYTES % (AUTO) 4.3 % (1.7-9.3); NEUTROPHILS # (AUTO) 11.8 K/uL (1.8-7.7); NEUTROPHILS % (AUTO) 88.5 % (40.0-70.0); PLATELET COUNT (AUTO) 66 K/uL (130-430); RED BLOOD CELL COUNT(AUTO) 3.21 MIL/uL (4.2-6.2); RED CELL DISTRIBUTION WIDTH 13.5 % (9.0-15.0); WHITE BLOOD COUNT (AUTO) 13.3 K/uL (4.8-10.8)
[2020-10-13 07:54] LABS: ALBUMIN 1.7 g/dL (3.4-4.8); CALCIUM 7.7 mg/dL (8.4-11.0); CREATININE 0.78 mg/dL (0.55-1.30); POTASSIUM 4.2 mmol/L (3.5-5.1); TOTAL BILIRUBIN 0.3 mg/dL (0.0-1.0)
[2020-10-13] MEDS: ENOXAPARIN SODIUM 40 MG/0.4 ML SYRINGE SUBCUT SCH (09:00)
[2020-10-13] MEDS: ASPIRIN 81 MG TABLET(ECOTRIN) PO SCH (09:00)
[2020-10-13] MEDS: THIAMINE HCL 100 MG TABLET GT SCH (10:22)
[2020-10-13] MEDS: CHOLECALCIFEROL (VITAMIN D3) 5,000 UNIT TABLET PO SCH (10:22)
[2020-10-13] MEDS: FAMOTIDINE PF 20 MG/2 ML VIAL IVP SCH ×2 (10:22→21:00)
[2020-10-13] MEDS: INSULIN GLARGINE 100 UNITS/ML 10 ML VIAL SUBCUT SCH ×2 (10:24→21:00)
[2020-10-13] MEDS ORDERED: ASPIRIN 81 MG TAB.CHEW ONE (10:44)
[2020-10-13] MEDS: 0.45% NACL 1,000 ML IV SCH (11:56)
[2020-10-13] MEDS: LEVOFLOXACIN 500 MG/D5W 100 ML IV SCH (14:01)
[2020-10-13] MEDS ORDERED: DEXAMETHASONE SOD PHOSPHATE 10 MG/ML VIAL ONE (14:01)
[2020-10-13] MEDS ORDERED: DEXAMETHASONE SOD PHOSPHATE 4 MG/ML VIAL ONE (22:45)
[2020-10-14] VITALS (27 sets, daily range): BP systolic 110–163
[2020-10-14] MEDS ORDERED: DEXAMETHASONE SOD PHOSPHATE 4 MG/ML VIAL ONE ×2 (04:45→21:02)
[2020-10-14] MEDS ORDERED: METOCLOPRAMIDE HCL 10 MG/2 ML VIAL ONE (04:47)
[2020-10-14] MEDS: METOCLOPRAMIDE HCL 10 MG/2 ML VIAL IVP SCH ×3 (04:50→17:05)
[2020-10-14] MEDS: DILTIAZEM HCL 90 MG TABLET PO SCH ×2 (04:50→13:17)
[2020-10-14] MEDS: DEXAMETHASONE SOD PHOSPHATE 4 MG/ML VIAL IVP SCH ×2 (04:50→14:00)
[2020-10-14] MEDS: INSULIN REGULAR, HUMAN 100 UNITS/ML, 10 ML VIAL (humuLIN R) SUBCUT PRN ×3 (06:15→17:14)
[2020-10-14 06:33] LABS: BASOPHILS # (AUTO) 0.1 K/uL (0.0-0.2); BASOPHILS % (AUTO) 0.5 % (0.0-2.0); HEMOGLOBIN 10.4 g/dL (14.0-18.0); LYMPHOCYTES # (AUTO) 0.8 K/uL (1.0-5.5); LYMPHOCYTES % (AUTO) 6.8 % (20.5-51.5); MEAN CORPUSCULAR HEMOGLOBIN 31 pg (27-31); MEAN CORPUSCULAR HGB CONC 33 % (32-36); MEAN CORPUSCULAR VOLUME 92 fL (79.0-98.0); MONOCYTES # (AUTO) 0.4 K/uL (0.0-1.0); MONOCYTES % (AUTO) 3.6 % (1.7-9.3); NEUTROPHILS # (AUTO) 10.7 K/uL (1.8-7.7); PLATELET COUNT (AUTO) 70 K/uL (130-430); RED BLOOD CELL COUNT(AUTO) 3.36 MIL/uL (4.2-6.2); RED CELL DISTRIBUTION WIDTH 13.6 % (9.0-15.0)
[2020-10-14 07:02] LABS: CALCIUM 7.7 mg/dL (8.4-11.0); CREATININE 0.76 mg/dL (0.55-1.30); POTASSIUM 4.4 mmol/L (3.5-5.1)
[2020-10-14] MEDS: THIAMINE HCL 100 MG TABLET GT SCH (08:44)
[2020-10-14] MEDS: ASPIRIN 81 MG TABLET(ECOTRIN) PO SCH (08:44)
[2020-10-14] MEDS: FAMOTIDINE PF 20 MG/2 ML VIAL IVP SCH ×2 (08:44→21:40)
[2020-10-14] MEDS: ENOXAPARIN SODIUM 40 MG/0.4 ML SYRINGE SUBCUT SCH (08:44)
[2020-10-14] MEDS: CHOLECALCIFEROL (VITAMIN D3) 5,000 UNIT TABLET PO SCH (08:44)
[2020-10-14] MEDS: INSULIN GLARGINE 100 UNITS/ML 10 ML VIAL SUBCUT SCH ×2 (08:45→21:44)
[2020-10-14] MEDS: 0.45% NACL 1,000 ML IV SCH (11:40)
[2020-10-14 14:03] LABS: NEUTROPHILS % (AUTO) 89.1 % (40.0-70.0)
[2020-10-14] MEDS: LEVOFLOXACIN 500 MG/D5W 100 ML IV SCH (15:00)
[2020-10-14] MEDS ORDERED: DEXAMETHASONE SOD PHOSPHATE 10 MG/ML VIAL ONE (17:04)
[2020-10-15] VITALS (29 sets, daily range): BP systolic 112–216
[2020-10-15] MEDS: INSULIN REGULAR, HUMAN 100 UNITS/ML, 10 ML VIAL (humuLIN R) SUBCUT PRN ×4 (02:43→17:47)
[2020-10-15] MEDS: DILTIAZEM HCL 90 MG TABLET PO SCH ×4 (06:00→23:18)
[2020-10-15] MEDS: METOCLOPRAMIDE HCL 10 MG/2 ML VIAL IVP SCH ×3 (06:00→17:39)
[2020-10-15] MEDS: DEXAMETHASONE SOD PHOSPHATE 4 MG/ML VIAL IVP SCH ×4 (06:00→21:00)
[2020-10-15] MEDS ORDERED: DEXAMETHASONE SOD PHOSPHATE 4 MG/ML VIAL ONE ×2 (06:54→15:01)
[2020-10-15] MEDS: ENOXAPARIN SODIUM 40 MG/0.4 ML SYRINGE SUBCUT SCH (09:00)
[2020-10-15] MEDS: FAMOTIDINE PF 20 MG/2 ML VIAL IVP SCH ×2 (10:51→21:00)
[2020-10-15] MEDS: CHOLECALCIFEROL (VITAMIN D3) 5,000 UNIT TABLET PO SCH (10:51)
[2020-10-15] MEDS: ASPIRIN 81 MG TABLET(ECOTRIN) PO SCH (10:51)
[2020-10-15] MEDS: THIAMINE HCL 100 MG TABLET GT SCH (10:52)
[2020-10-15] MEDS: INSULIN GLARGINE 100 UNITS/ML 10 ML VIAL SUBCUT SCH ×2 (10:55→21:00)
[2020-10-15] MEDS ORDERED: METOPROLOL TARTRATE 5 MG/5 ML VIAL ONE (15:05)
[2020-10-15] MEDS: LEVOFLOXACIN 500 MG/D5W 100 ML IV SCH (15:09)
[2020-10-15] MEDS: 0.45% NACL 1,000 ML IV SCH (15:10)
[2020-10-16] VITALS (27 sets, daily range): BP systolic 115–176
[2020-10-16] MEDS: INSULIN REGULAR, HUMAN 100 UNITS/ML, 10 ML VIAL (humuLIN R) SUBCUT PRN ×3 (00:57→18:46)
[2020-10-16] MEDS: DILTIAZEM HCL 90 MG TABLET PO SCH ×3 (06:00→22:00)
[2020-10-16] MEDS: METOCLOPRAMIDE HCL 10 MG/2 ML VIAL IVP SCH ×4 (06:42→18:43)
[2020-10-16 07:28] LABS: CALCIUM 7.8 mg/dL (8.4-11.0); CREATININE 0.73 mg/dL (0.55-1.30); POTASSIUM 4.3 mmol/L (3.5-5.1)
[2020-10-16 07:56] LABS: BASOPHILS # (AUTO) 0.1 K/uL (0.0-0.2); BASOPHILS % (AUTO) 0.4 % (0.0-2.0); HEMATOCRIT 29.8 % (36-54); HEMOGLOBIN 9.9 g/dL (14.0-18.0); LYMPHOCYTES # (AUTO) 0.8 K/uL (1.0-5.5); LYMPHOCYTES % (AUTO) 6.7 % (20.5-51.5); MEAN CORPUSCULAR HEMOGLOBIN 31 pg (27-31); MEAN CORPUSCULAR HGB CONC 33 % (32-36); MEAN CORPUSCULAR VOLUME 93 fL (79.0-98.0); MONOCYTES # (AUTO) 0.6 K/uL (0.0-1.0); NEUTROPHILS # (AUTO) 10.9 K/uL (1.8-7.7); PLATELET COUNT (AUTO) 77 K/uL (130-430); RED BLOOD CELL COUNT(AUTO) 3.21 MIL/uL (4.2-6.2); RED CELL DISTRIBUTION WIDTH 13.8 % (9.0-15.0); WHITE BLOOD COUNT (AUTO) 12.4 K/uL (4.8-10.8)
[2020-10-16] MEDS: INSULIN GLARGINE 100 UNITS/ML 10 ML VIAL SUBCUT SCH ×2 (09:00→21:00)
[2020-10-16] MEDS: DEXAMETHASONE SOD PHOSPHATE 4 MG/ML VIAL IVP SCH ×2 (11:19→21:00)
[2020-10-16] MEDS: THIAMINE HCL 100 MG TABLET GT SCH (11:19)
[2020-10-16] MEDS: CHOLECALCIFEROL (VITAMIN D3) 5,000 UNIT TABLET PO SCH (11:19)
[2020-10-16] MEDS: FAMOTIDINE PF 20 MG/2 ML VIAL IVP SCH ×2 (11:19→21:00)
[2020-10-16] MEDS: ASPIRIN 81 MG TABLET(ECOTRIN) PO SCH (11:19)
[2020-10-16] MEDS: ENOXAPARIN SODIUM 40 MG/0.4 ML SYRINGE SUBCUT SCH (11:20)
[2020-10-16 14:51] LABS: NEUTROPHILS % (AUTO) 87.9 % (40.0-70.0)
[2020-10-16] MEDS: LEVOFLOXACIN 500 MG/D5W 100 ML IV SCH (16:30)
[2020-10-16] MEDS: 0.45% NACL 1,000 ML IV SCH (17:48)
[2020-10-16] MEDS: ALBUTEROL MDI INHALATION 8 GM INH INH SCH (19:00)
[2020-10-17] VITALS (31 sets, daily range): BP systolic 100–150
[2020-10-17] MEDS: METOCLOPRAMIDE HCL 10 MG/2 ML VIAL IVP SCH ×4 (00:56→17:48)
[2020-10-17] MEDS: ALBUTEROL MDI INHALATION 8 GM INH INH SCH (03:00)
[2020-10-17] MEDS: DILTIAZEM HCL 90 MG TABLET PO SCH ×3 (05:46→21:51)
[2020-10-17] MEDS: INSULIN REGULAR, HUMAN 100 UNITS/ML, 10 ML VIAL (humuLIN R) SUBCUT PRN ×2 (06:24→12:11)
[2020-10-17] MEDS: ASPIRIN 81 MG TABLET(ECOTRIN) PO SCH (07:53)
[2020-10-17] MEDS: THIAMINE HCL 100 MG TABLET GT SCH (07:53)
[2020-10-17] MEDS: DEXAMETHASONE SOD PHOSPHATE 4 MG/ML VIAL IVP SCH ×2 (07:53→21:47)
[2020-10-17] MEDS: FAMOTIDINE PF 20 MG/2 ML VIAL IVP SCH ×2 (07:53→21:48)
[2020-10-17] MEDS: CHOLECALCIFEROL (VITAMIN D3) 5,000 UNIT TABLET PO SCH (07:53)
[2020-10-17] MEDS: ENOXAPARIN SODIUM 40 MG/0.4 ML SYRINGE SUBCUT SCH (07:56)
[2020-10-17] MEDS: INSULIN GLARGINE 100 UNITS/ML 10 ML VIAL SUBCUT SCH ×2 (07:56→22:31)
[2020-10-17] MEDS: 0.45% NACL 1,000 ML IV SCH (12:21)
[2020-10-18] VITALS (29 sets, daily range): BP systolic 109–160
[2020-10-18] MEDS: METOCLOPRAMIDE HCL 10 MG/2 ML VIAL IVP SCH ×5 (00:39→23:55)
[2020-10-18] MEDS: INSULIN REGULAR, HUMAN 100 UNITS/ML, 10 ML VIAL (humuLIN R) SUBCUT PRN ×4 (06:10→23:59)
[2020-10-18] MEDS: DILTIAZEM HCL 90 MG TABLET PO SCH ×3 (06:11→21:30)
[2020-10-18] MEDS: ALBUTEROL MDI INHALATION 8 GM INH INH SCH ×4 (07:00→19:50)
[2020-10-18] MEDS: IPRATROPIUM/ALBUTEROL SULFATE 3 ML AMPUL.NEB (DUONEB) INH SCH ×5 (07:00→23:00)
[2020-10-18 07:09] LABS: HEPATITIS B CORE AB, TOTAL Negative (Negative); HEPATITIS B SURFACE AG Negative (Negative); HEPATITIS C VIRUS AB <0.1 s/co ratio (0.0-0.9)
[2020-10-18 07:12] LABS: HEMATOCRIT 28.9 % (36-54); HEMOGLOBIN 9.5 g/dL (14.0-18.0); LYMPHOCYTES # (AUTO) 0.6 K/uL (1.0-5.5); LYMPHOCYTES % (AUTO) 4.2 % (20.5-51.5); MEAN CORPUSCULAR HEMOGLOBIN 31 pg (27-31); MEAN CORPUSCULAR HGB CONC 33 % (32-36); MEAN CORPUSCULAR VOLUME 93 fL (79.0-98.0); MONOCYTES # (AUTO) 0.5 K/uL (0.0-1.0); MONOCYTES % (AUTO) 3.5 % (1.7-9.3); NEUTROPHILS # (AUTO) 12.3 K/uL (1.8-7.7); NEUTROPHILS % (AUTO) 92.3 % (40.0-70.0); PLATELET COUNT (AUTO) 77 K/uL (130-430); RED BLOOD CELL COUNT(AUTO) 3.11 MIL/uL (4.2-6.2); RED CELL DISTRIBUTION WIDTH 14.4 % (9.0-15.0); WHITE BLOOD COUNT (AUTO) 13.3 K/uL (4.8-10.8)
[2020-10-18] MEDS: ASPIRIN 81 MG TABLET(ECOTRIN) PO SCH (08:44)
[2020-10-18] MEDS: INSULIN GLARGINE 100 UNITS/ML 10 ML VIAL SUBCUT SCH ×2 (08:44→21:35)
[2020-10-18] MEDS: CHOLECALCIFEROL (VITAMIN D3) 5,000 UNIT TABLET PO SCH (08:44)
[2020-10-18] MEDS: DEXAMETHASONE SOD PHOSPHATE 4 MG/ML VIAL IVP SCH ×2 (08:44→21:11)
[2020-10-18] MEDS: THIAMINE HCL 100 MG TABLET GT SCH (08:44)
[2020-10-18] MEDS: FAMOTIDINE PF 20 MG/2 ML VIAL IVP SCH ×2 (08:44→21:11)
[2020-10-18] MEDS: ENOXAPARIN SODIUM 40 MG/0.4 ML SYRINGE SUBCUT SCH (08:47)
[2020-10-18] MEDS: 0.45% NACL 1,000 ML IV SCH (11:04)
[2020-10-18] MEDS: LEVOFLOXACIN 500 MG/D5W 100 ML IV SCH (14:24)
[2020-10-19] VITALS (27 sets, daily range): BP systolic 104–162
[2020-10-19] MEDS: ALBUTEROL MDI INHALATION 8 GM INH INH SCH ×7 (00:14→23:30)
[2020-10-19] MEDS: IPRATROPIUM/ALBUTEROL SULFATE 3 ML AMPUL.NEB (DUONEB) INH SCH ×4 (03:00→23:00)
[2020-10-19] MEDS: METOCLOPRAMIDE HCL 10 MG/2 ML VIAL IVP SCH ×3 (06:04→17:15)
[2020-10-19] MEDS: DILTIAZEM HCL 90 MG TABLET PO SCH ×3 (06:05→21:53)
[2020-10-19] MEDS: INSULIN REGULAR, HUMAN 100 UNITS/ML, 10 ML VIAL (humuLIN R) SUBCUT PRN ×3 (06:37→17:16)
[2020-10-19] MEDS: DEXAMETHASONE SOD PHOSPHATE 4 MG/ML VIAL IVP SCH (08:11)
[2020-10-19] MEDS: FAMOTIDINE PF 20 MG/2 ML VIAL IVP SCH ×2 (08:11→21:43)
[2020-10-19] MEDS: CHOLECALCIFEROL (VITAMIN D3) 5,000 UNIT TABLET PO SCH (08:11)
[2020-10-19] MEDS: THIAMINE HCL 100 MG TABLET GT SCH (08:11)
[2020-10-19] MEDS: ENOXAPARIN SODIUM 40 MG/0.4 ML SYRINGE SUBCUT SCH (08:11)
[2020-10-19] MEDS: ASPIRIN 81 MG TABLET(ECOTRIN) PO SCH (08:11)
[2020-10-19] MEDS: INSULIN GLARGINE 100 UNITS/ML 10 ML VIAL SUBCUT SCH ×2 (08:11→21:49)
[2020-10-19] MEDS: 0.45% NACL 1,000 ML IV SCH (11:14)
[2020-10-19] MEDS ORDERED: DEXAMETHASONE SOD PHOSPHATE 4 MG/ML VIAL IVP ONE (11:15)
[2020-10-19] MEDS ORDERED: DILTIAZEM HCL 60 MG TABLET ONE (13:11)
[2020-10-19] MEDS: LEVOFLOXACIN 500 MG/D5W 100 ML IV SCH (15:00)
[2020-10-20] VITALS (22 sets, daily range): BP systolic 108–145
[2020-10-20] MEDS: METOCLOPRAMIDE HCL 10 MG/2 ML VIAL IVP SCH ×4 (01:44→17:24)
[2020-10-20] MEDS: IPRATROPIUM/ALBUTEROL SULFATE 3 ML AMPUL.NEB (DUONEB) INH SCH ×6 (03:00→23:00)
[2020-10-20] MEDS: ALBUTEROL MDI INHALATION 8 GM INH INH SCH ×6 (04:30→23:14)
[2020-10-20] MEDS: DILTIAZEM HCL 90 MG TABLET PO SCH ×3 (05:41→22:31)
[2020-10-20] MEDS: INSULIN REGULAR, HUMAN 100 UNITS/ML, 10 ML VIAL (humuLIN R) SUBCUT PRN ×2 (05:45→17:55)
[2020-10-20 06:56] LABS: BASOPHILS % (AUTO) 0.2 % (0.0-2.0); HEMATOCRIT 30.4 % (36-54); HEMOGLOBIN 10.1 g/dL (14.0-18.0); LYMPHOCYTES % (AUTO) 5.7 % (20.5-51.5); MEAN CORPUSCULAR HEMOGLOBIN 31 pg (27-31); MEAN CORPUSCULAR HGB CONC 33 % (32-36); MEAN CORPUSCULAR VOLUME 93 fL (79.0-98.0); MONOCYTES # (AUTO) 0.6 K/uL (0.0-1.0); MONOCYTES % (AUTO) 3.4 % (1.7-9.3); NEUTROPHILS # (AUTO) 15.1 K/uL (1.8-7.7); NEUTROPHILS % (AUTO) 90.7 % (40.0-70.0); PLATELET COUNT (AUTO) 90 K/uL (130-430); RED BLOOD CELL COUNT(AUTO) 3.28 MIL/uL (4.2-6.2); RED CELL DISTRIBUTION WIDTH 14.6 % (9.0-15.0); WHITE BLOOD COUNT (AUTO) 16.6 K/uL (4.8-10.8)
[2020-10-20] MEDS ORDERED: DEXAMETHASONE SOD PHOSPHATE 4 MG/ML VIAL INH ONE (08:45)
[2020-10-20] MEDS: CHOLECALCIFEROL (VITAMIN D3) 5,000 UNIT TABLET PO SCH (08:46)
[2020-10-20] MEDS: FAMOTIDINE PF 20 MG/2 ML VIAL IVP SCH ×2 (08:46→22:28)
[2020-10-20] MEDS: ASPIRIN 81 MG TABLET(ECOTRIN) PO SCH (08:46)
[2020-10-20] MEDS: THIAMINE HCL 100 MG TABLET GT SCH (08:46)
[2020-10-20] MEDS: INSULIN GLARGINE 100 UNITS/ML 10 ML VIAL SUBCUT SCH ×2 (08:47→22:19)
[2020-10-20] MEDS: ENOXAPARIN SODIUM 40 MG/0.4 ML SYRINGE SUBCUT SCH (08:49)
[2020-10-20] MEDS: 0.45% NACL 1,000 ML IV SCH (12:32)
[2020-10-20] MEDS: LEVOFLOXACIN 500 MG/D5W 100 ML IV SCH (14:10)
[2020-10-21] VITALS (19 sets, daily range): BP systolic 115–162
[2020-10-21] MEDS: METOCLOPRAMIDE HCL 10 MG/2 ML VIAL IVP SCH ×4 (02:10→17:23)
[2020-10-21] MEDS: IPRATROPIUM/ALBUTEROL SULFATE 3 ML AMPUL.NEB (DUONEB) INH SCH (03:00)
[2020-10-21] MEDS: ALBUTEROL MDI INHALATION 8 GM INH INH SCH ×6 (03:30→22:40)
[2020-10-21] MEDS: DILTIAZEM HCL 90 MG TABLET PO SCH ×2 (06:55→15:09)
[2020-10-21] MEDS: INSULIN REGULAR, HUMAN 100 UNITS/ML, 10 ML VIAL (humuLIN R) SUBCUT PRN (07:13)
[2020-10-21] MEDS ORDERED: DEXAMETHASONE SOD PHOSPHATE 4 MG/ML VIAL INH SCH (09:00)
[2020-10-21] MEDS: CHOLECALCIFEROL (VITAMIN D3) 5,000 UNIT TABLET PO SCH (10:29)
[2020-10-21] MEDS: ASPIRIN 81 MG TABLET(ECOTRIN) PO SCH (10:29)
[2020-10-21] MEDS: THIAMINE HCL 100 MG TABLET GT SCH (10:30)
[2020-10-21] MEDS: ENOXAPARIN SODIUM 40 MG/0.4 ML SYRINGE SUBCUT SCH (10:31)
[2020-10-21] MEDS: FAMOTIDINE PF 20 MG/2 ML VIAL IVP SCH (10:35)
[2020-10-21] MEDS: INSULIN GLARGINE 100 UNITS/ML 10 ML VIAL SUBCUT SCH (10:38)
[2020-10-21] MEDS: cloNIDine HCL 0.1 MG TABLET PO PRN (11:51)
[2020-10-21] MEDS: 0.45% NACL 1,000 ML IV SCH (12:35)
[2020-10-21] MEDS: LEVOFLOXACIN 500 MG/D5W 100 ML IV SCH (15:09)
[2020-10-22] VITALS (27 sets, daily range): BP systolic 126–155
[2020-10-22] MEDS: INSULIN GLARGINE 100 UNITS/ML 10 ML VIAL SUBCUT SCH ×3 (00:06→21:12)
[2020-10-22] MEDS: FAMOTIDINE PF 20 MG/2 ML VIAL IVP SCH ×3 (00:13→21:07)
[2020-10-22] MEDS: DILTIAZEM HCL 90 MG TABLET PO SCH ×4 (00:16→21:45)
[2020-10-22] MEDS ORDERED: METOCLOPRAMIDE HCL 10 MG/2 ML VIAL ONE (00:20)
[2020-10-22] MEDS: METOCLOPRAMIDE HCL 10 MG/2 ML VIAL IVP SCH ×4 (00:21→18:12)
[2020-10-22] MEDS: INSULIN REGULAR, HUMAN 100 UNITS/ML, 10 ML VIAL (humuLIN R) SUBCUT PRN ×4 (02:00→18:17)
[2020-10-22] MEDS: ALBUTEROL MDI INHALATION 8 GM INH INH SCH ×6 (02:24→23:20)
[2020-10-22] MEDS: ENOXAPARIN SODIUM 40 MG/0.4 ML SYRINGE SUBCUT SCH (10:55)
[2020-10-22] MEDS: THIAMINE HCL 100 MG TABLET GT SCH (10:56)
[2020-10-22] MEDS: CHOLECALCIFEROL (VITAMIN D3) 5,000 UNIT TABLET PO SCH (10:56)
[2020-10-22] MEDS: ASPIRIN 81 MG TABLET(ECOTRIN) PO SCH (10:56)
[2020-10-22] MEDS: LEVOFLOXACIN 500 MG/D5W 100 ML IV SCH (15:40)
[2020-10-22] MEDS: 0.45% NACL 1,000 ML IV SCH (15:43)
[2020-10-23] VITALS (31 sets, daily range): BP systolic 140–161
[2020-10-23] MEDS: METOCLOPRAMIDE HCL 10 MG/2 ML VIAL IVP SCH ×4 (02:10→17:38)
[2020-10-23] MEDS: ALBUTEROL MDI INHALATION 8 GM INH INH SCH ×6 (02:32→22:43)
[2020-10-23] MEDS: DILTIAZEM HCL 90 MG TABLET PO SCH ×3 (06:00→23:11)
[2020-10-23 06:31] LABS: BASOPHILS % (AUTO) 0.2 % (0.0-2.0); EOSINOPHILS % (AUTO) 0.2 % (0.0-4.0); HEMATOCRIT 28.3 % (36-54); HEMOGLOBIN 9.6 g/dL (14.0-18.0); LYMPHOCYTES # (AUTO) 0.7 K/uL (1.0-5.5); LYMPHOCYTES % (AUTO) 9.1 % (20.5-51.5); MEAN CORPUSCULAR HEMOGLOBIN 31 pg (27-31); MEAN CORPUSCULAR HGB CONC 34 % (32-36); MEAN CORPUSCULAR VOLUME 92 fL (79.0-98.0); MONOCYTES # (AUTO) 0.2 K/uL (0.0-1.0); MONOCYTES % (AUTO) 2.7 % (1.7-9.3); NEUTROPHILS # (AUTO) 6.9 K/uL (1.8-7.7); NEUTROPHILS % (AUTO) 87.8 % (40.0-70.0); PLATELET COUNT (AUTO) 80 K/uL (130-430); RED BLOOD CELL COUNT(AUTO) 3.08 MIL/uL (4.2-6.2); RED CELL DISTRIBUTION WIDTH 14.8 % (9.0-15.0); WHITE BLOOD COUNT (AUTO) 7.8 K/uL (4.8-10.8)
[2020-10-23 07:09] LABS: CREATININE 0.69 mg/dL (0.55-1.30); POTASSIUM 4.1 mmol/L (3.5-5.1)
[2020-10-23] MEDS: THIAMINE HCL 100 MG TABLET GT SCH (08:07)
[2020-10-23] MEDS: CHOLECALCIFEROL (VITAMIN D3) 5,000 UNIT TABLET PO SCH (08:08)
[2020-10-23] MEDS: ASPIRIN 81 MG TABLET(ECOTRIN) PO SCH (08:08)
[2020-10-23] MEDS: FAMOTIDINE PF 20 MG/2 ML VIAL IVP SCH ×2 (08:08→23:12)
[2020-10-23] MEDS: INSULIN GLARGINE 100 UNITS/ML 10 ML VIAL SUBCUT SCH ×2 (08:09→23:08)
[2020-10-23] MEDS: ENOXAPARIN SODIUM 40 MG/0.4 ML SYRINGE SUBCUT SCH (08:10)
[2020-10-23] MEDS: 0.45% NACL 1,000 ML IV SCH (13:41)
[2020-10-23] MEDS: LEVOFLOXACIN 500 MG/D5W 100 ML IV SCH (14:34)
[2020-10-23] MEDS: IPRATROPIUM/ALBUTEROL SULFATE 3 ML AMPUL.NEB (DUONEB) INH SCH (15:00)
[2020-10-23] MEDS: INSULIN REGULAR, HUMAN 100 UNITS/ML, 10 ML VIAL (humuLIN R) SUBCUT PRN (17:46)
[2020-10-24] VITALS (21 sets, daily range): BP systolic 126–161
[2020-10-24] MEDS: METOCLOPRAMIDE HCL 10 MG/2 ML VIAL IVP SCH ×5 (01:21→23:37)
[2020-10-24] MEDS: ALBUTEROL MDI INHALATION 8 GM INH INH SCH ×5 (03:30→23:00)
[2020-10-24] MEDS: DILTIAZEM HCL 90 MG TABLET PO SCH ×3 (06:36→21:34)
[2020-10-24] MEDS: INSULIN REGULAR, HUMAN 100 UNITS/ML, 10 ML VIAL (humuLIN R) SUBCUT PRN ×3 (07:27→18:21)
[2020-10-24] MEDS: CHOLECALCIFEROL (VITAMIN D3) 5,000 UNIT TABLET PO SCH (09:35)
[2020-10-24] MEDS: THIAMINE HCL 100 MG TABLET GT SCH (09:35)
[2020-10-24] MEDS: ASPIRIN 81 MG TABLET(ECOTRIN) PO SCH (09:35)
[2020-10-24] MEDS: FAMOTIDINE PF 20 MG/2 ML VIAL IVP SCH ×2 (09:35→21:34)
[2020-10-24] MEDS: INSULIN GLARGINE 100 UNITS/ML 10 ML VIAL SUBCUT SCH ×2 (09:41→21:39)
[2020-10-24] MEDS: ENOXAPARIN SODIUM 40 MG/0.4 ML SYRINGE SUBCUT SCH (09:42)
[2020-10-24] MEDS: 0.45% NACL 1,000 ML IV SCH (13:13)
[2020-10-24] MEDS: IPRATROPIUM/ALBUTEROL SULFATE 3 ML AMPUL.NEB (DUONEB) INH SCH ×3 (14:55→23:00)
[2020-10-25] VITALS (29 sets, daily range): BP systolic 123–157
[2020-10-25] MEDS: INSULIN REGULAR, HUMAN 100 UNITS/ML, 10 ML VIAL (humuLIN R) SUBCUT PRN ×4 (01:11→23:51)
[2020-10-25] MEDS: IPRATROPIUM/ALBUTEROL SULFATE 3 ML AMPUL.NEB (DUONEB) INH SCH ×5 (03:00→19:00)
[2020-10-25] MEDS: DILTIAZEM HCL 90 MG TABLET PO SCH ×3 (05:52→23:20)
[2020-10-25] MEDS: METOCLOPRAMIDE HCL 10 MG/2 ML VIAL IVP SCH ×4 (05:52→23:20)
[2020-10-25 06:37] LABS: ALBUMIN 1.2 g/dL (3.4-4.8); CALCIUM 7.9 mg/dL (8.4-11.0); CREATININE 0.67 mg/dL (0.55-1.30); POTASSIUM 4.4 mmol/L (3.5-5.1); TOTAL BILIRUBIN 0.3 mg/dL (0.0-1.0)
[2020-10-25 07:40] LABS: BASOPHILS % (AUTO) 0.3 % (0.0-2.0); EOSINOPHILS # (AUTO) 0.1 K/uL (0.0-0.4); EOSINOPHILS % (AUTO) 2.5 % (0.0-4.0); HEMATOCRIT 26.9 % (36-54); LYMPHOCYTES # (AUTO) 0.9 K/uL (1.0-5.5); LYMPHOCYTES % (AUTO) 24.2 % (20.5-51.5); MEAN CORPUSCULAR HEMOGLOBIN 31 pg (27-31); MEAN CORPUSCULAR HGB CONC 34 % (32-36); MEAN CORPUSCULAR VOLUME 92 fL (79.0-98.0); MONOCYTES # (AUTO) 0.2 K/uL (0.0-1.0); MONOCYTES % (AUTO) 4.6 % (1.7-9.3); NEUTROPHILS # (AUTO) 2.4 K/uL (1.8-7.7); NEUTROPHILS % (AUTO) 68.4 % (40.0-70.0); RED BLOOD CELL COUNT(AUTO) 2.93 MIL/uL (4.2-6.2); RED CELL DISTRIBUTION WIDTH 14.9 % (9.0-15.0)
[2020-10-25 07:56] LABS: WHITE BLOOD COUNT (AUTO) 3.5 K/uL (4.8-10.8)
[2020-10-25] MEDS: ALBUTEROL MDI INHALATION 8 GM INH INH SCH ×5 (08:10→23:00)
[2020-10-25] MEDS: INSULIN GLARGINE 100 UNITS/ML 10 ML VIAL SUBCUT SCH ×2 (09:28→21:37)
[2020-10-25] MEDS: FAMOTIDINE PF 20 MG/2 ML VIAL IVP SCH ×2 (09:31→21:31)
[2020-10-25] MEDS: BALSAM PERU/CASTOR OIL 60 GM OINT...G. TP SCH (09:31)
[2020-10-25] MEDS: ASPIRIN 81 MG TABLET(ECOTRIN) PO SCH (09:31)
[2020-10-25] MEDS: CHOLECALCIFEROL (VITAMIN D3) 5,000 UNIT TABLET PO SCH (09:31)
[2020-10-25] MEDS: THIAMINE HCL 100 MG TABLET GT SCH (09:31)
[2020-10-25] MEDS: ENOXAPARIN SODIUM 40 MG/0.4 ML SYRINGE SUBCUT SCH (09:32)
[2020-10-25 10:42] LABS: PLATELET COUNT (AUTO) 82 K/uL (130-430)
[2020-10-25] MEDS: NACL 0.9% 1,000 ML IV SCH (17:20)
[2020-10-25] MEDS: levETIRAcetam 1,000 MG in NS 100 ML IV SCH (21:32)
[2020-10-26] VITALS (29 sets, daily range): BP systolic 124–164
[2020-10-26] MEDS: ALBUTEROL MDI INHALATION 8 GM INH INH SCH ×6 (03:00→23:00)
[2020-10-26] MEDS: METOCLOPRAMIDE HCL 10 MG/2 ML VIAL IVP SCH ×3 (06:00→18:19)
[2020-10-26] MEDS: DILTIAZEM HCL 90 MG TABLET PO SCH (06:00)
[2020-10-26 06:41] LABS: PROTHROMBIN TIME 10.6 SECS (9.5-12.5)
[2020-10-26 06:54] LABS: CREATININE 0.66 mg/dL (0.55-1.30); POTASSIUM 4.4 mmol/L (3.5-5.1)
[2020-10-26 07:35] LABS: BASOPHILS % (AUTO) 0.4 % (0.0-2.0); EOSINOPHILS % (AUTO) 0.6 % (0.0-4.0); HEMATOCRIT 26.8 % (36-54); HEMOGLOBIN 9.1 g/dL (14.0-18.0); LYMPHOCYTES # (AUTO) 0.7 K/uL (1.0-5.5); MEAN CORPUSCULAR HEMOGLOBIN 31 pg (27-31); MEAN CORPUSCULAR HGB CONC 34 % (32-36); MEAN CORPUSCULAR VOLUME 92 fL (79.0-98.0); MONOCYTES # (AUTO) 0.1 K/uL (0.0-1.0); PLATELET COUNT (AUTO) 93 K/uL (130-430); RED BLOOD CELL COUNT(AUTO) 2.93 MIL/uL (4.2-6.2); RED CELL DISTRIBUTION WIDTH 14.6 % (9.0-15.0); WHITE BLOOD COUNT (AUTO) 2.9 K/uL (4.8-10.8)
[2020-10-26] MEDS: INSULIN GLARGINE 100 UNITS/ML 10 ML VIAL SUBCUT SCH ×2 (08:56→21:26)
[2020-10-26] MEDS: FAMOTIDINE PF 20 MG/2 ML VIAL IVP SCH ×2 (08:58→21:15)
[2020-10-26] MEDS: THIAMINE HCL 100 MG TABLET GT SCH (08:59)
[2020-10-26] MEDS: CHOLECALCIFEROL (VITAMIN D3) 5,000 UNIT TABLET PO SCH (08:59)
[2020-10-26] MEDS: BALSAM PERU/CASTOR OIL 60 GM OINT...G. TP SCH (08:59)
[2020-10-26] MEDS: ASPIRIN 81 MG TABLET(ECOTRIN) PO SCH (08:59)
[2020-10-26] MEDS: levETIRAcetam 1,000 MG in NS 100 ML IV SCH ×2 (08:59→21:15)
[2020-10-26] MEDS: INSULIN REGULAR, HUMAN 100 UNITS/ML, 10 ML VIAL (humuLIN R) SUBCUT PRN (13:04)
[2020-10-26] MEDS ORDERED: SIMETHICONE 40 MG/0.6 ML ML ONE (14:11)
[2020-10-26] MEDS: NACL 0.9% 1,000 ML IV SCH (20:15)
[2020-10-27] VITALS (28 sets, daily range): BP systolic 126–181
[2020-10-27] MEDS: METOCLOPRAMIDE HCL 10 MG/2 ML VIAL IVP SCH ×4 (00:49→17:05)
[2020-10-27] MEDS: INSULIN GLARGINE 100 UNITS/ML 10 ML VIAL SUBCUT SCH ×2 (09:00→20:24)
[2020-10-27] MEDS: ASPIRIN 81 MG TABLET(ECOTRIN) PO SCH (09:21)
[2020-10-27] MEDS: THIAMINE HCL 100 MG TABLET GT SCH (09:21)
[2020-10-27] MEDS: FAMOTIDINE PF 20 MG/2 ML VIAL IVP SCH ×2 (09:21→20:23)
[2020-10-27] MEDS: CHOLECALCIFEROL (VITAMIN D3) 5,000 UNIT TABLET PO SCH (09:21)
[2020-10-27] MEDS: BALSAM PERU/CASTOR OIL 60 GM OINT...G. TP SCH (09:22)
[2020-10-27] MEDS: cloNIDine HCL 0.1 MG TABLET PO PRN (09:44)
[2020-10-27] MEDS: levETIRAcetam 1,000 MG in NS 100 ML IV SCH ×2 (09:44→20:25)
[2020-10-27] MEDS: NACL 0.9% 1,000 ML IV SCH (17:25)
[2020-10-27] MEDS: DEXTROSE 50% JECT 50 ML DISP.SYRIN IVP PRN (17:26)
[2020-10-27] MEDS: ALBUTEROL MDI INHALATION 8 GM INH INH SCH (20:02)
[2020-10-28] VITALS (29 sets, daily range): BP systolic 113–177
[2020-10-28] MEDS: METOCLOPRAMIDE HCL 10 MG/2 ML VIAL IVP SCH ×5 (02:14→23:10)
[2020-10-28] MEDS: INSULIN REGULAR, HUMAN 100 UNITS/ML, 10 ML VIAL (humuLIN R) SUBCUT PRN (04:41)
[2020-10-28] MEDS: ALBUTEROL MDI INHALATION 8 GM INH INH SCH ×6 (04:56→23:35)
[2020-10-28 06:47] LABS: BASOPHILS % (AUTO) 0.4 % (0.0-2.0); EOSINOPHILS # (AUTO) 0.1 K/uL (0.0-0.4); EOSINOPHILS % (AUTO) 1.9 % (0.0-4.0); HEMATOCRIT 27.3 % (36-54); HEMOGLOBIN 9.1 g/dL (14.0-18.0); LYMPHOCYTES # (AUTO) 0.9 K/uL (1.0-5.5); LYMPHOCYTES % (AUTO) 27.9 % (20.5-51.5); MEAN CORPUSCULAR HEMOGLOBIN 31 pg (27-31); MEAN CORPUSCULAR HGB CONC 33 % (32-36); MEAN CORPUSCULAR VOLUME 92 fL (79.0-98.0); MONOCYTES # (AUTO) 0.2 K/uL (0.0-1.0); NEUTROPHILS # (AUTO) 2.1 K/uL (1.8-7.7); NEUTROPHILS % (AUTO) 64.8 % (40.0-70.0); PLATELET COUNT (AUTO) 88 K/uL (130-430); RED BLOOD CELL COUNT(AUTO) 2.96 MIL/uL (4.2-6.2); RED CELL DISTRIBUTION WIDTH 14.9 % (9.0-15.0); WHITE BLOOD COUNT (AUTO) 3.2 K/uL (4.8-10.8)
[2020-10-28 07:04] LABS: CALCIUM 7.5 mg/dL (8.4-11.0); CREATININE 0.6 mg/dL (0.55-1.30); POTASSIUM 3.7 mmol/L (3.5-5.1)
[2020-10-28] MEDS: THIAMINE HCL 100 MG TABLET GT SCH (08:00)
[2020-10-28] MEDS: FAMOTIDINE PF 20 MG/2 ML VIAL IVP SCH ×2 (08:00→21:00)
[2020-10-28] MEDS: CHOLECALCIFEROL (VITAMIN D3) 5,000 UNIT TABLET PO SCH (08:00)
[2020-10-28] MEDS: levETIRAcetam 1,000 MG in NS 100 ML IV SCH ×2 (08:00→21:00)
[2020-10-28] MEDS: BALSAM PERU/CASTOR OIL 60 GM OINT...G. TP SCH (08:33)
[2020-10-28] MEDS: INSULIN GLARGINE 100 UNITS/ML 10 ML VIAL SUBCUT SCH (09:00)
[2020-10-28] MEDS: DEXTROSE 50% JECT 50 ML DISP.SYRIN IVP PRN (11:47)
[2020-10-28] MEDS ORDERED: ONDANSETRON HCL 4 MG/2 ML VIAL IVP PRN (14:15)
[2020-10-28] MEDS ORDERED: fentaNYL CITRATE/PF 100 MCG/2 ML AMP IVP PRN ×2 (14:15)
[2020-10-28] MEDS ORDERED: ROCURONIUM BROMIDE 10 MG/ML (ZEMURON) ONE (14:55)
[2020-10-28] MEDS ORDERED: NS IRRIG SOLN 1000 ML IR ONE (14:55)
[2020-10-28] MEDS ORDERED: BUPIVACAINE /DEX PF 0.75% SPINAL 2 ML AMP INJ ONE (14:55)
[2020-10-28] MEDS ORDERED: CEFAZOLIN 2 GM IVPB PREMIX 50 ML IV ONE (14:55)
[2020-10-28] MEDS ORDERED: LR 1,000 ML IV.SOLN IV ONE (14:55)
[2020-10-28] MEDS ORDERED: SEVOFLURANE 15 MIN GAS INH ONE (14:55)
[2020-10-28] MEDS: IPRATROPIUM/ALBUTEROL SULFATE 3 ML AMPUL.NEB (DUONEB) INH SCH ×3 (15:00→23:00)
[2020-10-28] MEDS: hydrALAZINE HCL 20 MG/ML VIAL IVP PRN (15:50)
[2020-10-28] MEDS: NACL 0.9% 1,000 ML IV SCH (16:35)
[2020-10-28] MEDS ORDERED: NALOXONE HCL 0.4 MG/ML AMP (NARCAN) IVP PRN (17:00)
[2020-10-28] MEDS: MORPHINE 2 MG/ML INJ. SYRINGE IVP PRN (18:20)
[2020-10-29] VITALS (25 sets, daily range): BP systolic 147–190
[2020-10-29] MEDS: IPRATROPIUM/ALBUTEROL SULFATE 3 ML AMPUL.NEB (DUONEB) INH SCH (03:00)
[2020-10-29] MEDS: ALBUTEROL MDI INHALATION 8 GM INH INH SCH ×4 (04:00→21:52)
[2020-10-29] MEDS: METOCLOPRAMIDE HCL 10 MG/2 ML VIAL IVP SCH ×4 (06:00→23:06)
[2020-10-29 06:38] LABS: INR 1.1 (0.80-1.20); PROTHROMBIN TIME 10.9 SECS (9.5-12.5)
[2020-10-29 07:23] LABS: BASOPHILS % (AUTO) 0.3 % (0.0-2.0); EOSINOPHILS # (AUTO) 0.1 K/uL (0.0-0.4); EOSINOPHILS % (AUTO) 2.2 % (0.0-4.0); HEMATOCRIT 26.6 % (36-54); HEMOGLOBIN 8.9 g/dL (14.0-18.0); LYMPHOCYTES # (AUTO) 0.9 K/uL (1.0-5.5); LYMPHOCYTES % (AUTO) 27.3 % (20.5-51.5); MEAN CORPUSCULAR HEMOGLOBIN 31 pg (27-31); MEAN CORPUSCULAR HGB CONC 33 % (32-36); MEAN CORPUSCULAR VOLUME 93 fL (79.0-98.0); MONOCYTES # (AUTO) 0.1 K/uL (0.0-1.0); MONOCYTES % (AUTO) 4.4 % (1.7-9.3); NEUTROPHILS # (AUTO) 2.2 K/uL (1.8-7.7); NEUTROPHILS % (AUTO) 65.8 % (40.0-70.0); PLATELET COUNT (AUTO) 87 K/uL (130-430); RED BLOOD CELL COUNT(AUTO) 2.88 MIL/uL (4.2-6.2); RED CELL DISTRIBUTION WIDTH 15.4 % (9.0-15.0); WHITE BLOOD COUNT (AUTO) 3.4 K/uL (4.8-10.8)
[2020-10-29 07:39] LABS: ALBUMIN 1.4 g/dL (3.4-4.8); CREATININE 0.49 mg/dL (0.55-1.30); POTASSIUM 3.7 mmol/L (3.5-5.1); TOTAL BILIRUBIN 0.5 mg/dL (0.0-1.0)
[2020-10-29] MEDS ORDERED: ENOXAPARIN SODIUM 40 MG/0.4 ML SYRINGE SUBCUT SCH (09:00)
[2020-10-29] MEDS: THIAMINE HCL 100 MG TABLET GT SCH (09:35)
[2020-10-29] MEDS: levETIRAcetam 1,000 MG in NS 100 ML IV SCH ×2 (09:37→21:23)
[2020-10-29] MEDS: CHOLECALCIFEROL (VITAMIN D3) 5,000 UNIT TABLET PO SCH (10:23)
[2020-10-29] MEDS ORDERED: LISINOPRIL 10 MG TABLET (PRINIVIL) PO ONE (12:15)
[2020-10-29] MEDS: FAMOTIDINE PF 20 MG/2 ML VIAL IVP SCH ×2 (15:00→21:23)
[2020-10-29] MEDS: BALSAM PERU/CASTOR OIL 60 GM OINT...G. TP SCH (18:15)
[2020-10-29] MEDS: NACL 0.9% 1,000 ML IV SCH (21:00)
[2020-10-29] MEDS: hydrALAZINE HCL 20 MG/ML VIAL IVP PRN (23:06)
[2020-10-30] VITALS (27 sets, daily range): BP systolic 142–184
[2020-10-30] MEDS: hydrALAZINE HCL 20 MG/ML VIAL IVP PRN ×2 (02:45→06:04)
[2020-10-30] MEDS: ALBUTEROL MDI INHALATION 8 GM INH INH SCH ×2 (03:10→16:30)
[2020-10-30] MEDS: INSULIN REGULAR, HUMAN 100 UNITS/ML, 10 ML VIAL (humuLIN R) SUBCUT PRN ×4 (04:54→22:37)
[2020-10-30] MEDS: METOCLOPRAMIDE HCL 10 MG/2 ML VIAL IVP SCH ×3 (04:57→18:17)
[2020-10-30 07:28] LABS: BASOPHILS % (AUTO) 0.3 % (0.0-2.0); EOSINOPHILS # (AUTO) 0.1 K/uL (0.0-0.4); EOSINOPHILS % (AUTO) 1.3 % (0.0-4.0); HEMOGLOBIN 8.7 g/dL (14.0-18.0); LYMPHOCYTES % (AUTO) 27.3 % (20.5-51.5); MEAN CORPUSCULAR HEMOGLOBIN 31 pg (27-31); MEAN CORPUSCULAR HGB CONC 34 % (32-36); MEAN CORPUSCULAR VOLUME 92 fL (79.0-98.0); MONOCYTES # (AUTO) 0.1 K/uL (0.0-1.0); MONOCYTES % (AUTO) 3.8 % (1.7-9.3); NEUTROPHILS # (AUTO) 2.5 K/uL (1.8-7.7); NEUTROPHILS % (AUTO) 67.3 % (40.0-70.0); PLATELET COUNT (AUTO) 99 K/uL (130-430); RED BLOOD CELL COUNT(AUTO) 2.82 MIL/uL (4.2-6.2); RED CELL DISTRIBUTION WIDTH 15.5 % (9.0-15.0); WHITE BLOOD COUNT (AUTO) 3.8 K/uL (4.8-10.8)
[2020-10-30 07:31] LABS: CALCIUM 7.7 mg/dL (8.4-11.0); CREATININE 0.64 mg/dL (0.55-1.30); POTASSIUM 3.9 mmol/L (3.5-5.1)
[2020-10-30] MEDS: FAMOTIDINE PF 20 MG/2 ML VIAL IVP SCH ×2 (09:00→21:50)
[2020-10-30] MEDS: THIAMINE HCL 100 MG TABLET GT SCH (10:06)
[2020-10-30] MEDS: CHOLECALCIFEROL (VITAMIN D3) 5,000 UNIT TABLET PO SCH (10:06)
[2020-10-30] MEDS: LISINOPRIL 10 MG TABLET (PRINIVIL) PO SCH (10:07)
[2020-10-30] MEDS: BALSAM PERU/CASTOR OIL 60 GM OINT...G. TP SCH (10:08)
[2020-10-30] MEDS: levETIRAcetam 1,000 MG in NS 100 ML IV SCH ×2 (11:57→21:50)
[2020-10-30] MEDS ORDERED: ENOXAPARIN SODIUM 40 MG/0.4 ML SYRINGE SUBCUT ONE (12:45)
[2020-10-30] MEDS: NACL 0.9% 1,000 ML IV SCH (17:15)
[2020-10-30] MEDS ORDERED: MORPHINE 2 MG/ML INJ. SYRINGE ONE (21:08)
[2020-10-30] MEDS: MORPHINE 2 MG/ML INJ. SYRINGE IVP PRN (22:49)
[2020-10-31] VITALS (27 sets, daily range): BP systolic 116–170
[2020-10-31] MEDS: METOCLOPRAMIDE HCL 10 MG/2 ML VIAL IVP SCH ×5 (00:12→22:59)
[2020-10-31] MEDS: INSULIN REGULAR, HUMAN 100 UNITS/ML, 10 ML VIAL (humuLIN R) SUBCUT PRN ×3 (00:20→17:14)
[2020-10-31 05:11] LABS: CALCIUM 7.7 mg/dL (8.4-11.0); CREATININE 0.48 mg/dL (0.55-1.30); POTASSIUM 3.6 mmol/L (3.5-5.1)
[2020-10-31 05:19] LABS: BASOPHILS % (AUTO) 0.3 % (0.0-2.0); EOSINOPHILS # (AUTO) 0.1 K/uL (0.0-0.4); EOSINOPHILS % (AUTO) 4.2 % (0.0-4.0); HEMATOCRIT 25.1 % (36-54); HEMOGLOBIN 8.5 g/dL (14.0-18.0); LYMPHOCYTES # (AUTO) 0.9 K/uL (1.0-5.5); LYMPHOCYTES % (AUTO) 28.2 % (20.5-51.5); MEAN CORPUSCULAR HEMOGLOBIN 31 pg (27-31); MEAN CORPUSCULAR HGB CONC 34 % (32-36); MEAN CORPUSCULAR VOLUME 92 fL (79.0-98.0); MONOCYTES # (AUTO) 0.1 K/uL (0.0-1.0); MONOCYTES % (AUTO) 4.9 % (1.7-9.3); NEUTROPHILS # (AUTO) 1.9 K/uL (1.8-7.7); NEUTROPHILS % (AUTO) 62.4 % (40.0-70.0); PLATELET COUNT (AUTO) 97 K/uL (130-430); RED BLOOD CELL COUNT(AUTO) 2.73 MIL/uL (4.2-6.2); RED CELL DISTRIBUTION WIDTH 15.9 % (9.0-15.0); WHITE BLOOD COUNT (AUTO) 3.1 K/uL (4.8-10.8)
[2020-10-31] MEDS: FAMOTIDINE PF 20 MG/2 ML VIAL IVP SCH ×2 (09:00→20:20)
[2020-10-31] MEDS: ALBUTEROL MDI INHALATION 8 GM INH INH SCH ×5 (09:33→23:40)
[2020-10-31] MEDS: levETIRAcetam 1,000 MG in NS 100 ML IV SCH ×2 (09:58→20:19)
[2020-10-31] MEDS: THIAMINE HCL 100 MG TABLET GT SCH (10:14)
[2020-10-31] MEDS: CHOLECALCIFEROL (VITAMIN D3) 5,000 UNIT TABLET PO SCH (10:14)
[2020-10-31] MEDS: LISINOPRIL 10 MG TABLET (PRINIVIL) PO SCH (10:15)
[2020-10-31] MEDS: BALSAM PERU/CASTOR OIL 60 GM OINT...G. TP SCH (10:16)
[2020-10-31] MEDS: ENOXAPARIN SODIUM 40 MG/0.4 ML SYRINGE SUBCUT SCH (10:18)
[2020-10-31] MEDS: NACL 0.9% 1,000 ML IV SCH (17:38)
[2020-10-31] MEDS ORDERED: MORPHINE 2 MG/ML INJ. SYRINGE ONE (19:59)
[2020-10-31] MEDS: MORPHINE 2 MG/ML INJ. SYRINGE IVP PRN (21:23)
[2020-11-01] VITALS (19 sets, daily range): BP systolic 102–142
[2020-11-01] MEDS: INSULIN REGULAR, HUMAN 100 UNITS/ML, 10 ML VIAL (humuLIN R) SUBCUT PRN ×5 (01:55→17:46)
[2020-11-01] MEDS: ALBUTEROL MDI INHALATION 8 GM INH INH SCH ×4 (03:31→18:32)
[2020-11-01 05:17] LABS: BASOPHILS % (AUTO) 0.3 % (0.0-2.0); EOSINOPHILS # (AUTO) 0.1 K/uL (0.0-0.4); HEMOGLOBIN 8.3 g/dL (14.0-18.0); LYMPHOCYTES % (AUTO) 26.9 % (20.5-51.5); MEAN CORPUSCULAR HEMOGLOBIN 31 pg (27-31); MEAN CORPUSCULAR HGB CONC 33 % (32-36); MEAN CORPUSCULAR VOLUME 93 fL (79.0-98.0); MONOCYTES # (AUTO) 0.2 K/uL (0.0-1.0); MONOCYTES % (AUTO) 5.8 % (1.7-9.3); NEUTROPHILS # (AUTO) 2.4 K/uL (1.8-7.7); PLATELET COUNT (AUTO) 95 K/uL (130-430); RED BLOOD CELL COUNT(AUTO) 2.69 MIL/uL (4.2-6.2); RED CELL DISTRIBUTION WIDTH 15.7 % (9.0-15.0); WHITE BLOOD COUNT (AUTO) 3.7 K/uL (4.8-10.8)
[2020-11-01 05:30] LABS: CREATININE 0.58 mg/dL (0.55-1.30)
[2020-11-01] MEDS: METOCLOPRAMIDE HCL 10 MG/2 ML VIAL IVP SCH ×3 (06:50→17:29)
[2020-11-01] MEDS: IPRATROPIUM/ALBUTEROL SULFATE 3 ML AMPUL.NEB (DUONEB) INH SCH ×3 (07:00→16:25)
[2020-11-01] MEDS: LISINOPRIL 10 MG TABLET (PRINIVIL) PO SCH (09:00)
[2020-11-01] MEDS: ENOXAPARIN SODIUM 40 MG/0.4 ML SYRINGE SUBCUT SCH (09:00)
[2020-11-01] MEDS: FAMOTIDINE PF 20 MG/2 ML VIAL IVP SCH ×2 (09:25→21:20)
[2020-11-01] MEDS: CHOLECALCIFEROL (VITAMIN D3) 5,000 UNIT TABLET PO SCH (09:28)
[2020-11-01] MEDS: THIAMINE HCL 100 MG TABLET GT SCH (09:28)
[2020-11-01] MEDS: levETIRAcetam 1,000 MG in NS 100 ML IV SCH ×2 (09:30→21:19)
[2020-11-01] MEDS: MULTIVITAMINS,THERAPEUTIC 5 ML UDC GT SCH ×2 (15:00→21:00)
[2020-11-01] MEDS: FERROUS SULFATE 300 MG/5 ML UDC GT SCH ×2 (15:00→21:19)
[2020-11-01] MEDS: NACL 0.9% 1,000 ML IV SCH (17:28)
[2020-11-02] MEDS: METOCLOPRAMIDE HCL 10 MG/2 ML VIAL IVP SCH ×4 (00:43→17:10)
[2020-11-02] MEDS: INSULIN REGULAR, HUMAN 100 UNITS/ML, 10 ML VIAL (humuLIN R) SUBCUT PRN ×4 (00:57→17:12)
[2020-11-02] MEDS: ALBUTEROL MDI INHALATION 8 GM INH INH SCH ×6 (03:38→17:37)
[2020-11-02 07:01] LABS: BASOPHILS % (AUTO) 0.3 % (0.0-2.0); EOSINOPHILS # (AUTO) 0.1 K/uL (0.0-0.4); EOSINOPHILS % (AUTO) 1.9 % (0.0-4.0); HEMATOCRIT 23.5 % (36-54); HEMOGLOBIN 7.9 g/dL (14.0-18.0); LYMPHOCYTES # (AUTO) 0.9 K/uL (1.0-5.5); LYMPHOCYTES % (AUTO) 23.4 % (20.5-51.5); MEAN CORPUSCULAR HEMOGLOBIN 31 pg (27-31); MEAN CORPUSCULAR HGB CONC 34 % (32-36); MEAN CORPUSCULAR VOLUME 91 fL (79.0-98.0); MONOCYTES # (AUTO) 0.2 K/uL (0.0-1.0); MONOCYTES % (AUTO) 5.8 % (1.7-9.3); NEUTROPHILS # (AUTO) 2.6 K/uL (1.8-7.7); NEUTROPHILS % (AUTO) 68.6 % (40.0-70.0); PLATELET COUNT (AUTO) 103 K/uL (130-430); RED BLOOD CELL COUNT(AUTO) 2.57 MIL/uL (4.2-6.2); RED CELL DISTRIBUTION WIDTH 15.5 % (9.0-15.0); RETICULOCYTE COUNT 2.5 % (0.5-1.5); WHITE BLOOD COUNT (AUTO) 3.8 K/uL (4.8-10.8)
[2020-11-02 07:32] LABS: CALCIUM 7.8 mg/dL (8.4-11.0); CREATININE 0.5 mg/dL (0.55-1.30); POTASSIUM 3.9 mmol/L (3.5-5.1)
[2020-11-02] MEDS: IPRATROPIUM/ALBUTEROL SULFATE 3 ML AMPUL.NEB (DUONEB) INH SCH ×3 (08:05→15:00)
[2020-11-02] MEDS: FERROUS SULFATE 300 MG/5 ML UDC GT SCH (08:54)
[2020-11-02] MEDS: MULTIVITAMINS,THERAPEUTIC 5 ML UDC GT SCH ×3 (08:54→21:00)
[2020-11-02] MEDS: THIAMINE HCL 100 MG TABLET GT SCH (08:54)
[2020-11-02] MEDS: LISINOPRIL 10 MG TABLET (PRINIVIL) PO SCH (08:55)
[2020-11-02] MEDS: CHOLECALCIFEROL (VITAMIN D3) 5,000 UNIT TABLET PO SCH (08:55)
[2020-11-02] MEDS: levETIRAcetam 1,000 MG in NS 100 ML IV SCH ×2 (08:55→21:00)
[2020-11-02] MEDS: FAMOTIDINE PF 20 MG/2 ML VIAL IVP SCH ×2 (08:55→21:00)
[2020-11-02] MEDS: ENOXAPARIN SODIUM 40 MG/0.4 ML SYRINGE SUBCUT SCH (08:56)
[2020-11-02 10:12] VITALS: BP_SYST 140
[2020-11-02] MEDS: BALSAM PERU/CASTOR OIL 60 GM OINT...G. TP SCH (10:20)
[2020-11-02 12:00] VITALS: BP_SYST 134
[2020-11-02] MEDS: SOD FERRIC GLUC COMPLEX/SUC 125 MG in NS 100 ML IV SCH (14:27)
[2020-11-02] MEDS: NACL 0.9% 1,000 ML IV SCH (14:27)
[2020-11-02 16:00] VITALS: BP_SYST 135
[2020-11-02 20:00] VITALS: BP_SYST 145
[2020-11-03] VITALS: BP_SYST 136
[2020-11-03] MEDS: METOCLOPRAMIDE HCL 10 MG/2 ML VIAL IVP SCH ×4 (00:01→17:30)
[2020-11-03] MEDS: INSULIN REGULAR, HUMAN 100 UNITS/ML, 10 ML VIAL (humuLIN R) SUBCUT PRN ×4 (00:02→18:35)
[2020-11-03] MEDS: DILTIAZEM HCL 25 MG/5 ML VIAL IVP PRN (06:42)
[2020-11-03] MEDS: IPRATROPIUM/ALBUTEROL SULFATE 3 ML AMPUL.NEB (DUONEB) INH SCH ×5 (07:00→23:00)
[2020-11-03] MEDS: BALSAM PERU/CASTOR OIL 60 GM OINT...G. TP SCH (09:00)
[2020-11-03] MEDS: levETIRAcetam 1,000 MG in NS 100 ML IV SCH (09:42)
[2020-11-03] MEDS: MULTIVITAMINS,THERAPEUTIC 5 ML UDC GT SCH ×3 (09:43→21:00)
[2020-11-03] MEDS: CHOLECALCIFEROL (VITAMIN D3) 5,000 UNIT TABLET PO SCH (09:45)
[2020-11-03] MEDS: LISINOPRIL 10 MG TABLET (PRINIVIL) PO SCH (09:45)
[2020-11-03] MEDS: THIAMINE HCL 100 MG TABLET GT SCH (09:45)
[2020-11-03] MEDS: FAMOTIDINE PF 20 MG/2 ML VIAL IVP SCH ×2 (09:45→21:00)
[2020-11-03] MEDS: ENOXAPARIN SODIUM 40 MG/0.4 ML SYRINGE SUBCUT SCH (09:48)
[2020-11-03] MEDS ORDERED: INSULIN GLARGINE 100 UNITS/ML 10 ML VIAL SUBCUT ONE (11:00)
[2020-11-03 12:00] VITALS: BP_SYST 130
[2020-11-03] MEDS: SOD FERRIC GLUC COMPLEX/SUC 125 MG in NS 100 ML IV SCH (13:00)
[2020-11-03] MEDS: DILTIAZEM HCL 30 MG TABLET GT SCH ×2 (15:15→23:15)
[2020-11-03 16:00] VITALS: BP_SYST 158
[2020-11-03] MEDS: NACL 0.9% 1,000 ML IV SCH (17:30)
[2020-11-03] MEDS: ALBUTEROL MDI INHALATION 8 GM INH INH SCH ×4 (17:32→23:00)
[2020-11-03 19:20] VITALS: BP_SYST 130
[2020-11-03 20:00] VITALS: BP_SYST 127
[2020-11-03] MEDS: INSULIN GLARGINE 100 UNITS/ML 10 ML VIAL SUBCUT SCH (21:00)
[2020-11-03] MEDS: LevETIRAcetam 500 MG/5 ML UDC ORAL LIQUID GT SCH (21:00)
[2020-11-04] MEDS: ALBUTEROL MDI INHALATION 8 GM INH INH SCH ×4 (03:00→15:20)
[2020-11-04] MEDS: IPRATROPIUM/ALBUTEROL SULFATE 3 ML AMPUL.NEB (DUONEB) INH SCH (03:00)
[2020-11-04] MEDS: METOCLOPRAMIDE HCL 10 MG/2 ML VIAL IVP SCH ×5 (06:34→23:40)
[2020-11-04] MEDS: DILTIAZEM HCL 30 MG TABLET GT SCH ×3 (06:35→23:40)
[2020-11-04 07:53] LABS: BASOPHILS % (AUTO) 0.7 % (0.0-2.0); EOSINOPHILS % (AUTO) 0.9 % (0.0-4.0); HEMATOCRIT 22.7 % (36-54); HEMOGLOBIN 7.6 g/dL (14.0-18.0); LYMPHOCYTES # (AUTO) 1.2 K/uL (1.0-5.5); LYMPHOCYTES % (AUTO) 24.4 % (20.5-51.5); MEAN CORPUSCULAR HEMOGLOBIN 31 pg (27-31); MEAN CORPUSCULAR HGB CONC 34 % (32-36); MEAN CORPUSCULAR VOLUME 92 fL (79.0-98.0); MONOCYTES # (AUTO) 0.3 K/uL (0.0-1.0); MONOCYTES % (AUTO) 6.7 % (1.7-9.3); NEUTROPHILS # (AUTO) 3.2 K/uL (1.8-7.7); NEUTROPHILS % (AUTO) 67.3 % (40.0-70.0); PLATELET COUNT (AUTO) 147 K/uL (130-430); RED BLOOD CELL COUNT(AUTO) 2.48 MIL/uL (4.2-6.2); RED CELL DISTRIBUTION WIDTH 16.2 % (9.0-15.0); WHITE BLOOD COUNT (AUTO) 4.8 K/uL (4.8-10.8)
[2020-11-04 08:00] VITALS: BP_SYST 126
[2020-11-04 08:45] LABS: CREATININE 0.59 mg/dL (0.55-1.30); POTASSIUM 3.4 mmol/L (3.5-5.1)
[2020-11-04] MEDS: BALSAM PERU/CASTOR OIL 60 GM OINT...G. TP SCH (09:00)
[2020-11-04] MEDS: MULTIVITAMINS,THERAPEUTIC 5 ML UDC GT SCH (09:00)
[2020-11-04] MEDS: LISINOPRIL 10 MG TABLET (PRINIVIL) PO SCH (10:02)
[2020-11-04] MEDS: FAMOTIDINE PF 20 MG/2 ML VIAL IVP SCH (10:03)
[2020-11-04] MEDS: ACETAMINOPHEN 650 MG/20.3 ML UDC GT PRN ×2 (10:03→23:45)
[2020-11-04] MEDS: CHOLECALCIFEROL (VITAMIN D3) 5,000 UNIT TABLET PO SCH (10:04)
[2020-11-04] MEDS: THIAMINE HCL 100 MG TABLET GT SCH (10:04)
[2020-11-04] MEDS: INSULIN GLARGINE 100 UNITS/ML 10 ML VIAL SUBCUT SCH ×2 (10:14→23:40)
[2020-11-04] MEDS: ENOXAPARIN SODIUM 40 MG/0.4 ML SYRINGE SUBCUT SCH (10:16)
[2020-11-04] MEDS: LevETIRAcetam 500 MG/5 ML UDC ORAL LIQUID GT SCH ×2 (10:17→23:40)
[2020-11-04] MEDS: MULTIVITAMINS TAB 1 TABLET GT SCH ×3 (11:00→23:40)
[2020-11-04] MEDS ORDERED: POTASSIUM CHLORIDE 20 MEQ/PKT PACKET PO ONE (12:00)
[2020-11-04] MEDS ORDERED: CYANOCOBALAMIN 1000 mCg TABLET JT ONE (12:00)
[2020-11-04] MEDS: SOD FERRIC GLUC COMPLEX/SUC 125 MG in NS 100 ML IV SCH (13:00)
[2020-11-04] MEDS: INSULIN REGULAR, HUMAN 100 UNITS/ML, 10 ML VIAL (humuLIN R) SUBCUT PRN ×3 (15:12→23:40)
[2020-11-04 16:00] VITALS: BP_SYST 120
[2020-11-04] MEDS: NACL 0.9% 1,000 ML IV SCH (17:47)
[2020-11-04 20:00] VITALS: BP_SYST 144
[2020-11-04] MEDS ORDERED: DILTIAZEM HCL 30 MG TABLET ONE (23:23)
[2020-11-05] VITALS (7 sets, daily range): BP systolic 117–150
[2020-11-05] MEDS ORDERED: DILTIAZEM HCL 30 MG TABLET ONE (06:38)
[2020-11-05] MEDS: METOCLOPRAMIDE HCL 10 MG/2 ML VIAL IVP SCH ×4 (06:45→23:27)
[2020-11-05] MEDS: DILTIAZEM HCL 30 MG TABLET GT SCH ×3 (06:45→23:15)
[2020-11-05] MEDS: INSULIN REGULAR, HUMAN 100 UNITS/ML, 10 ML VIAL (humuLIN R) SUBCUT PRN ×2 (06:50→11:43)
[2020-11-05] MEDS: IPRATROPIUM/ALBUTEROL SULFATE 3 ML AMPUL.NEB (DUONEB) INH SCH (07:00)
[2020-11-05] MEDS: THIAMINE HCL 100 MG TABLET GT SCH (08:47)
[2020-11-05] MEDS: INSULIN GLARGINE 100 UNITS/ML 10 ML VIAL SUBCUT SCH ×2 (08:47→21:00)
[2020-11-05] MEDS: CYANOCOBALAMIN 1000 mCg TABLET JT SCH (08:47)
[2020-11-05] MEDS: LevETIRAcetam 500 MG/5 ML UDC ORAL LIQUID GT SCH ×3 (08:47→23:50)
[2020-11-05] MEDS: MULTIVITAMINS TAB 1 TABLET GT SCH ×3 (08:47→21:00)
[2020-11-05] MEDS: CHOLECALCIFEROL (VITAMIN D3) 5,000 UNIT TABLET PO SCH (08:47)
[2020-11-05] MEDS: ENOXAPARIN SODIUM 40 MG/0.4 ML SYRINGE SUBCUT SCH (08:48)
[2020-11-05] MEDS: BALSAM PERU/CASTOR OIL 60 GM OINT...G. TP SCH (09:00)
[2020-11-05] MEDS: LISINOPRIL 10 MG TABLET (PRINIVIL) PO SCH (09:13)
[2020-11-05] MEDS: ALBUTEROL MDI INHALATION 8 GM INH INH SCH ×2 (10:21→16:10)
[2020-11-05] MEDS: SOD FERRIC GLUC COMPLEX/SUC 125 MG in NS 100 ML IV SCH (14:00)
[2020-11-05] MEDS: NACL 0.9% 1,000 ML IV SCH (16:07)
[2020-11-06] VITALS (8 sets, daily range): BP systolic 110–128
[2020-11-06] MEDS: DILTIAZEM HCL 30 MG TABLET GT SCH ×3 (06:01→23:15)
[2020-11-06] MEDS: METOCLOPRAMIDE HCL 10 MG/2 ML VIAL IVP SCH ×3 (06:02→17:28)
[2020-11-06] MEDS: INSULIN REGULAR, HUMAN 100 UNITS/ML, 10 ML VIAL (humuLIN R) SUBCUT PRN ×3 (06:40→17:40)
[2020-11-06 07:29] LABS: BASOPHILS # (AUTO) 0.1 K/uL (0.0-0.2); BASOPHILS % (AUTO) 0.7 % (0.0-2.0); HEMATOCRIT 25.2 % (36-54); HEMOGLOBIN 8.3 g/dL (14.0-18.0); LYMPHOCYTES # (AUTO) 0.8 K/uL (1.0-5.5); LYMPHOCYTES % (AUTO) 12.2 % (20.5-51.5); MEAN CORPUSCULAR HEMOGLOBIN 31 pg (27-31); MEAN CORPUSCULAR HGB CONC 33 % (32-36); MEAN CORPUSCULAR VOLUME 93 fL (79.0-98.0); MONOCYTES # (AUTO) 0.2 K/uL (0.0-1.0); MONOCYTES % (AUTO) 2.6 % (1.7-9.3); NEUTROPHILS # (AUTO) 5.9 K/uL (1.8-7.7); NEUTROPHILS % (AUTO) 84.5 % (40.0-70.0); PLATELET COUNT (AUTO) 209 K/uL (130-430); RED BLOOD CELL COUNT(AUTO) 2.72 MIL/uL (4.2-6.2); RED CELL DISTRIBUTION WIDTH 16.5 % (9.0-15.0); WHITE BLOOD COUNT (AUTO) 6.9 K/uL (4.8-10.8)
[2020-11-06 08:01] LABS: ALBUMIN 1.3 g/dL (3.4-4.8); CALCIUM 8.2 mg/dL (8.4-11.0); CREATININE 0.65 mg/dL (0.55-1.30); POTASSIUM 4.6 mmol/L (3.5-5.1); TOTAL BILIRUBIN 0.2 mg/dL (0.0-1.0)
[2020-11-06] MEDS: CYANOCOBALAMIN 1000 mCg TABLET JT SCH (10:09)
[2020-11-06] MEDS: THIAMINE HCL 100 MG TABLET GT SCH (10:09)
[2020-11-06] MEDS: MULTIVITAMINS TAB 1 TABLET GT SCH ×3 (10:09→22:26)
[2020-11-06] MEDS: LISINOPRIL 10 MG TABLET (PRINIVIL) PO SCH (10:10)
[2020-11-06] MEDS: INSULIN GLARGINE 100 UNITS/ML 10 ML VIAL SUBCUT SCH ×2 (10:10→21:00)
[2020-11-06] MEDS: CHOLECALCIFEROL (VITAMIN D3) 5,000 UNIT TABLET PO SCH (10:10)
[2020-11-06] MEDS: ENOXAPARIN SODIUM 40 MG/0.4 ML SYRINGE SUBCUT SCH (10:13)
[2020-11-06] MEDS: BALSAM PERU/CASTOR OIL 60 GM OINT...G. TP SCH (10:13)
[2020-11-06] MEDS: SOD FERRIC GLUC COMPLEX/SUC 125 MG in NS 100 ML IV SCH (13:05)
[2020-11-06] MEDS: NACL 0.9% 1,000 ML IV SCH (17:14)
[2020-11-06] MEDS: ALBUTEROL MDI INHALATION 8 GM INH INH SCH ×2 (19:22→23:05)
[2020-11-06] MEDS: LevETIRAcetam 500 MG/5 ML UDC ORAL LIQUID GT SCH (22:26)
[2020-11-07 00:30] VITALS: BP_SYST 116
[2020-11-07] MEDS: ALBUTEROL MDI INHALATION 8 GM INH INH SCH ×5 (03:16→23:18)
[2020-11-07] MEDS: DILTIAZEM HCL 30 MG TABLET GT SCH ×3 (07:15→23:35)
[2020-11-07] MEDS: METOCLOPRAMIDE HCL 10 MG/2 ML VIAL IVP SCH ×5 (07:25→23:34)
[2020-11-07] MEDS: INSULIN REGULAR, HUMAN 100 UNITS/ML, 10 ML VIAL (humuLIN R) SUBCUT PRN ×4 (07:27→23:23)
[2020-11-07 08:00] VITALS: BP_SYST 159
[2020-11-07] MEDS: ENOXAPARIN SODIUM 40 MG/0.4 ML SYRINGE SUBCUT SCH (09:16)
[2020-11-07] MEDS: MULTIVITAMINS TAB 1 TABLET GT SCH ×3 (09:28→23:26)
[2020-11-07] MEDS: CHOLECALCIFEROL (VITAMIN D3) 5,000 UNIT TABLET PO SCH (09:28)
[2020-11-07] MEDS: LevETIRAcetam 500 MG/5 ML UDC ORAL LIQUID GT SCH ×2 (09:28→23:25)
[2020-11-07] MEDS: CYANOCOBALAMIN 1000 mCg TABLET JT SCH (09:28)
[2020-11-07] MEDS: BALSAM PERU/CASTOR OIL 60 GM OINT...G. TP SCH (09:28)
[2020-11-07] MEDS: LISINOPRIL 10 MG TABLET (PRINIVIL) PO SCH (09:28)
[2020-11-07] MEDS: THIAMINE HCL 100 MG TABLET GT SCH (09:28)
[2020-11-07] MEDS: INSULIN GLARGINE 100 UNITS/ML 10 ML VIAL SUBCUT SCH ×2 (09:29→23:25)
[2020-11-07] MEDS ORDERED: FUROSEMIDE 20 MG/2 ML VIAL IVP ONE (10:00)
[2020-11-07 11:44] VITALS: BP_SYST 115
[2020-11-07] MEDS: SOD FERRIC GLUC COMPLEX/SUC 125 MG in NS 100 ML IV SCH (12:29)
[2020-11-07 15:37] VITALS: BP_SYST 126
[2020-11-07] MEDS: NACL 0.9% 1,000 ML IV SCH (17:35)
[2020-11-07 21:13] VITALS: BP_SYST 143
[2020-11-08] MEDS: ALBUTEROL MDI INHALATION 8 GM INH INH SCH ×3 (03:08→23:30)
[2020-11-08 04:00] VITALS: BP_SYST 141
[2020-11-08] MEDS: INSULIN REGULAR, HUMAN 100 UNITS/ML, 10 ML VIAL (humuLIN R) SUBCUT PRN ×4 (05:19→23:22)
[2020-11-08] MEDS: METOCLOPRAMIDE HCL 10 MG/2 ML VIAL IVP SCH ×4 (05:20→23:23)
[2020-11-08] MEDS: DILTIAZEM HCL 30 MG TABLET GT SCH ×3 (07:15→23:24)
[2020-11-08 08:00] VITALS: BP_SYST 137
[2020-11-08] MEDS: BALSAM PERU/CASTOR OIL 60 GM OINT...G. TP SCH (09:00)
[2020-11-08] MEDS: INSULIN GLARGINE 100 UNITS/ML 10 ML VIAL SUBCUT SCH ×2 (09:00→23:21)
[2020-11-08] MEDS: LISINOPRIL 10 MG TABLET (PRINIVIL) PO SCH (10:18)
[2020-11-08] MEDS: CHOLECALCIFEROL (VITAMIN D3) 5,000 UNIT TABLET PO SCH (10:18)
[2020-11-08] MEDS: CYANOCOBALAMIN 1000 mCg TABLET JT SCH (10:18)
[2020-11-08] MEDS: THIAMINE HCL 100 MG TABLET GT SCH (10:19)
[2020-11-08] MEDS: MULTIVITAMINS TAB 1 TABLET GT SCH ×3 (10:19→23:23)
[2020-11-08] MEDS: LevETIRAcetam 500 MG/5 ML UDC ORAL LIQUID GT SCH ×2 (10:20→23:25)
[2020-11-08] MEDS: ENOXAPARIN SODIUM 40 MG/0.4 ML SYRINGE SUBCUT SCH (10:21)
[2020-11-08 11:30] VITALS: BP_SYST 126
[2020-11-08] MEDS: SOD FERRIC GLUC COMPLEX/SUC 125 MG in NS 100 ML IV SCH (13:00)
[2020-11-08 15:44] VITALS: BP_SYST 148
[2020-11-08] MEDS: NACL 0.9% 1,000 ML IV SCH (18:06)
[2020-11-08] MEDS: IPRATROPIUM/ALBUTEROL SULFATE 3 ML AMPUL.NEB (DUONEB) INH SCH (19:00)
[2020-11-08 21:00] VITALS: BP_SYST 157
[2020-11-09] MEDS: DILTIAZEM HCL 30 MG TABLET GT SCH ×3 (00:15→15:54)
[2020-11-09 04:00] VITALS: BP_SYST 156
[2020-11-09] MEDS: ALBUTEROL MDI INHALATION 8 GM INH INH SCH ×4 (04:28→16:30)
[2020-11-09] MEDS: METOCLOPRAMIDE HCL 10 MG/2 ML VIAL IVP SCH ×3 (05:54→18:28)
[2020-11-09] MEDS: INSULIN REGULAR, HUMAN 100 UNITS/ML, 10 ML VIAL (humuLIN R) SUBCUT PRN ×3 (05:55→18:27)
[2020-11-09 08:00] VITALS: BP_SYST 123
[2020-11-09] MEDS: CHOLECALCIFEROL (VITAMIN D3) 5,000 UNIT TABLET PO SCH (09:13)
[2020-11-09] MEDS: LISINOPRIL 10 MG TABLET (PRINIVIL) PO SCH (09:13)
[2020-11-09] MEDS: CYANOCOBALAMIN 1000 mCg TABLET JT SCH (09:13)
[2020-11-09] MEDS: THIAMINE HCL 100 MG TABLET GT SCH (09:13)
[2020-11-09] MEDS: MULTIVITAMINS TAB 1 TABLET GT SCH ×3 (09:13→21:00)
[2020-11-09] MEDS: LevETIRAcetam 500 MG/5 ML UDC ORAL LIQUID GT SCH ×2 (09:13→21:00)
[2020-11-09] MEDS: BALSAM PERU/CASTOR OIL 60 GM OINT...G. TP SCH (09:14)
[2020-11-09] MEDS: ENOXAPARIN SODIUM 40 MG/0.4 ML SYRINGE SUBCUT SCH (09:17)
[2020-11-09] MEDS: INSULIN GLARGINE 100 UNITS/ML 10 ML VIAL SUBCUT SCH ×2 (09:17→21:00)
[2020-11-09 11:48] VITALS: BP_SYST 111
[2020-11-09] MEDS: SOD FERRIC GLUC COMPLEX/SUC 125 MG in NS 100 ML IV SCH (12:02)
[2020-11-09 16:41] VITALS: BP_SYST 106
[2020-11-09] MEDS: NACL 0.9% 1,000 ML IV SCH (16:55)
[2020-11-09 20:00] VITALS: BP_SYST 146
[2020-11-10] VITALS: BP_SYST 123
[2020-11-10] MEDS: INSULIN REGULAR, HUMAN 100 UNITS/ML, 10 ML VIAL (humuLIN R) SUBCUT PRN ×4 (00:15→18:03)
[2020-11-10] MEDS: METOCLOPRAMIDE HCL 10 MG/2 ML VIAL IVP SCH ×4 (06:00→18:02)
[2020-11-10] MEDS: DILTIAZEM HCL 30 MG TABLET GT SCH ×3 (06:28→15:42)
[2020-11-10 07:45] VITALS: BP_SYST 122
[2020-11-10] MEDS: CYANOCOBALAMIN 1000 mCg TABLET JT SCH (09:45)
[2020-11-10] MEDS: THIAMINE HCL 100 MG TABLET GT SCH (09:45)
[2020-11-10] MEDS: LevETIRAcetam 500 MG/5 ML UDC ORAL LIQUID GT SCH ×2 (09:45→21:26)
[2020-11-10] MEDS: MULTIVITAMINS TAB 1 TABLET GT SCH ×3 (09:45→21:26)
[2020-11-10] MEDS: CHOLECALCIFEROL (VITAMIN D3) 5,000 UNIT TABLET PO SCH (09:46)
[2020-11-10] MEDS: LISINOPRIL 10 MG TABLET (PRINIVIL) PO SCH (09:46)
[2020-11-10] MEDS: BALSAM PERU/CASTOR OIL 60 GM OINT...G. TP SCH (09:46)
[2020-11-10] MEDS: ENOXAPARIN SODIUM 40 MG/0.4 ML SYRINGE SUBCUT SCH (09:54)
[2020-11-10] MEDS: INSULIN GLARGINE 100 UNITS/ML 10 ML VIAL SUBCUT SCH ×2 (09:54→21:26)
[2020-11-10] MEDS: ALBUTEROL MDI INHALATION 8 GM INH INH SCH ×3 (11:00→20:47)
[2020-11-10 11:27] VITALS: BP_SYST 139
[2020-11-10 15:50] VITALS: BP_SYST 152
[2020-11-10 16:09] VITALS: BP_SYST 147
[2020-11-10] MEDS: NACL 0.9% 1,000 ML IV SCH (17:51)
[2020-11-10 20:00] VITALS: BP_SYST 128
[2020-11-11] VITALS: BP_SYST 135
[2020-11-11] MEDS: INSULIN REGULAR, HUMAN 100 UNITS/ML, 10 ML VIAL (humuLIN R) SUBCUT PRN ×5 (00:03→23:30)
[2020-11-11 00:42] VITALS: BP_SYST 131
[2020-11-11] MEDS: ALBUTEROL MDI INHALATION 8 GM INH INH SCH ×7 (00:42→23:30)
[2020-11-11] MEDS: METOCLOPRAMIDE HCL 10 MG/2 ML VIAL IVP SCH ×5 (06:00→23:30)
[2020-11-11] MEDS: DILTIAZEM HCL 30 MG TABLET GT SCH ×3 (06:45→23:30)
[2020-11-11 08:00] VITALS: BP_SYST 125
[2020-11-11] MEDS: LevETIRAcetam 500 MG/5 ML UDC ORAL LIQUID GT SCH ×2 (09:14→21:10)
[2020-11-11] MEDS: ACETAMINOPHEN 650 MG/20.3 ML UDC GT PRN (09:15)
[2020-11-11] MEDS: CHOLECALCIFEROL (VITAMIN D3) 5,000 UNIT TABLET PO SCH (09:15)
[2020-11-11] MEDS: MULTIVITAMINS TAB 1 TABLET GT SCH ×3 (09:15→21:10)
[2020-11-11] MEDS: BALSAM PERU/CASTOR OIL 60 GM OINT...G. TP SCH (09:15)
[2020-11-11] MEDS: THIAMINE HCL 100 MG TABLET GT SCH (09:15)
[2020-11-11] MEDS: CYANOCOBALAMIN 1000 mCg TABLET JT SCH (09:15)
[2020-11-11] MEDS: INSULIN GLARGINE 100 UNITS/ML 10 ML VIAL SUBCUT SCH ×2 (09:16→21:10)
[2020-11-11] MEDS: ENOXAPARIN SODIUM 40 MG/0.4 ML SYRINGE SUBCUT SCH (09:17)
[2020-11-11] MEDS: FERROUS SULFATE 300 MG/5 ML UDC GT SCH ×3 (09:19→21:10)
[2020-11-11] MEDS: LISINOPRIL 10 MG TABLET (PRINIVIL) PO SCH (09:30)
[2020-11-11 12:17] VITALS: BP_SYST 124
[2020-11-11 16:18] VITALS: BP_SYST 133
[2020-11-11] MEDS: NACL 0.9% 1,000 ML IV SCH (17:24)
[2020-11-11 20:00] VITALS: BP_SYST 128
[2020-11-12] VITALS: BP_SYST 137
[2020-11-12] MEDS: ALBUTEROL MDI INHALATION 8 GM INH INH SCH ×7 (03:00→23:30)
[2020-11-12] MEDS: METOCLOPRAMIDE HCL 10 MG/2 ML VIAL IVP SCH ×3 (05:30→17:54)
[2020-11-12] MEDS: INSULIN REGULAR, HUMAN 100 UNITS/ML, 10 ML VIAL (humuLIN R) SUBCUT PRN ×4 (05:30→23:30)
[2020-11-12] MEDS: DILTIAZEM HCL 30 MG TABLET GT SCH ×3 (06:00→23:30)
[2020-11-12 07:59] LABS: HEMATOCRIT 23.7 % (36-54); HEMOGLOBIN 7.9 g/dL (14.0-18.0); MEAN CORPUSCULAR HEMOGLOBIN 31 pg (27-31); MEAN CORPUSCULAR HGB CONC 33 % (32-36); MEAN CORPUSCULAR VOLUME 92 fL (79.0-98.0); PLATELET COUNT (AUTO) 335 K/uL (130-430); RED BLOOD CELL COUNT(AUTO) 2.56 MIL/uL (4.2-6.2); RED CELL DISTRIBUTION WIDTH 17.2 % (9.0-15.0)
[2020-11-12 08:00] VITALS: BP_SYST 136
[2020-11-12 08:22] LABS: ALBUMIN 1.4 g/dL (3.4-4.8); CREATININE 0.54 mg/dL (0.55-1.30); POTASSIUM 3.9 mmol/L (3.5-5.1); TOTAL BILIRUBIN 0.1 mg/dL (0.0-1.0)
[2020-11-12] MEDS: FERROUS SULFATE 300 MG/5 ML UDC GT SCH ×3 (09:33→21:30)
[2020-11-12] MEDS: MULTIVITAMINS TAB 1 TABLET GT SCH ×3 (09:34→21:30)
[2020-11-12] MEDS: LevETIRAcetam 500 MG/5 ML UDC ORAL LIQUID GT SCH ×2 (09:34→21:30)
[2020-11-12] MEDS: CYANOCOBALAMIN 1000 mCg TABLET JT SCH (09:34)
[2020-11-12] MEDS: THIAMINE HCL 100 MG TABLET GT SCH (09:34)
[2020-11-12] MEDS: CHOLECALCIFEROL (VITAMIN D3) 5,000 UNIT TABLET PO SCH (09:35)
[2020-11-12] MEDS: BALSAM PERU/CASTOR OIL 60 GM OINT...G. TP SCH (09:35)
[2020-11-12] MEDS: INSULIN GLARGINE 100 UNITS/ML 10 ML VIAL SUBCUT SCH ×2 (09:40→21:30)
[2020-11-12] MEDS: ENOXAPARIN SODIUM 40 MG/0.4 ML SYRINGE SUBCUT SCH (09:59)
[2020-11-12] MEDS: LISINOPRIL 10 MG TABLET (PRINIVIL) PO SCH (10:00)
[2020-11-12] MEDS: ACETAMINOPHEN 650 MG/20.3 ML UDC GT PRN ×2 (10:01)
[2020-11-12 10:04] VITALS: BP_SYST 137
[2020-11-12 11:40] VITALS: BP_SYST 133
[2020-11-12 14:07] LABS: ATYPICAL LYMPHOCYTES % 2 % (0-0); BAND % (MANUAL) 17 % (0-6); LYMPHOCYTES % (MANUAL) 21 % (20-46); MONOCYTES % (MANUAL) 7 % (0-11)
[2020-11-12 14:08] LABS: BASOPHILS % (MANUAL) 0 % (0-2); EOSINOPHILS % (MANUAL) 0 % (0-7); METAMYELOCYTES % 4 % (0-0)
[2020-11-12 15:42] VITALS: BP_SYST 131
[2020-11-12] MEDS: NACL 0.9% 1,000 ML IV SCH (17:54)
[2020-11-12 20:00] VITALS: BP_SYST 142
[2020-11-13] VITALS: BP_SYST 117; BP_SYST 132
[2020-11-13] MEDS: ALBUTEROL MDI INHALATION 8 GM INH INH SCH ×4 (03:35→20:06)
[2020-11-13] MEDS: INSULIN REGULAR, HUMAN 100 UNITS/ML, 10 ML VIAL (humuLIN R) SUBCUT PRN ×3 (05:30→19:00)
[2020-11-13] MEDS: METOCLOPRAMIDE HCL 10 MG/2 ML VIAL IVP SCH ×3 (05:30→18:58)
[2020-11-13] MEDS: DILTIAZEM HCL 30 MG TABLET GT SCH ×3 (06:40→23:15)
[2020-11-13 07:36] LABS: BASOPHILS # (AUTO) 0.1 K/uL (0.0-0.2); EOSINOPHILS % (AUTO) 0.2 % (0.0-4.0); HEMATOCRIT 24.6 % (36-54); HEMOGLOBIN 8.1 g/dL (14.0-18.0); LYMPHOCYTES # (AUTO) 1.9 K/uL (1.0-5.5); LYMPHOCYTES % (AUTO) 16.7 % (20.5-51.5); MEAN CORPUSCULAR HEMOGLOBIN 30 pg (27-31); MEAN CORPUSCULAR HGB CONC 33 % (32-36); MEAN CORPUSCULAR VOLUME 92 fL (79.0-98.0); MONOCYTES # (AUTO) 0.9 K/uL (0.0-1.0); MONOCYTES % (AUTO) 8.1 % (1.7-9.3); NEUTROPHILS # (AUTO) 8.4 K/uL (1.8-7.7); PLATELET COUNT (AUTO) 317 K/uL (130-430); RED BLOOD CELL COUNT(AUTO) 2.68 MIL/uL (4.2-6.2); RETICULOCYTE COUNT 4.4 % (0.5-1.5); WHITE BLOOD COUNT (AUTO) 11.3 K/uL (4.8-10.8)
[2020-11-13 07:54] LABS: TOTAL IRON BIND. CAPACITY 135 ug/dL (250-450)
[2020-11-13 08:00] VITALS: BP_SYST 112
[2020-11-13 08:30] LABS: ALBUMIN 1.4 g/dL (3.4-4.8); CALCIUM 8.2 mg/dL (8.4-11.0); CREATININE 0.48 mg/dL (0.55-1.30); TOTAL BILIRUBIN 0.1 mg/dL (0.0-1.0)
[2020-11-13] MEDS: THIAMINE HCL 100 MG TABLET GT SCH (09:01)
[2020-11-13] MEDS: MULTIVITAMINS TAB 1 TABLET GT SCH ×3 (09:01→21:25)
[2020-11-13] MEDS: CYANOCOBALAMIN 1000 mCg TABLET JT SCH (09:01)
[2020-11-13] MEDS: BALSAM PERU/CASTOR OIL 60 GM OINT...G. TP SCH (09:02)
[2020-11-13] MEDS: CHOLECALCIFEROL (VITAMIN D3) 5,000 UNIT TABLET PO SCH (09:02)
[2020-11-13] MEDS: FERROUS SULFATE 300 MG/5 ML UDC GT SCH ×3 (09:02→21:25)
[2020-11-13] MEDS: LevETIRAcetam 500 MG/5 ML UDC ORAL LIQUID GT SCH ×2 (09:02→21:25)
[2020-11-13] MEDS: INSULIN GLARGINE 100 UNITS/ML 10 ML VIAL SUBCUT SCH ×2 (09:05→21:25)
[2020-11-13] MEDS: ENOXAPARIN SODIUM 40 MG/0.4 ML SYRINGE SUBCUT SCH (10:17)
[2020-11-13] MEDS: LISINOPRIL 10 MG TABLET (PRINIVIL) PO SCH (10:27)
[2020-11-13 12:05] VITALS: BP_SYST 131
[2020-11-13 16:07] VITALS: BP_SYST 126
[2020-11-13] MEDS: NACL 0.9% 1,000 ML IV SCH (17:15)
[2020-11-13 20:00] VITALS: BP_SYST 141
[2020-11-14] VITALS: BP_SYST 132
[2020-11-14] MEDS: METOCLOPRAMIDE HCL 10 MG/2 ML VIAL IVP SCH ×4 (00:10→17:44)
[2020-11-14] MEDS: INSULIN REGULAR, HUMAN 100 UNITS/ML, 10 ML VIAL (humuLIN R) SUBCUT PRN ×5 (00:10→23:44)
[2020-11-14] MEDS: DILTIAZEM HCL 30 MG TABLET GT SCH ×3 (06:22→23:39)
[2020-11-14 07:01] LABS: BASOPHILS # (AUTO) 0.1 K/uL (0.0-0.2); BASOPHILS % (AUTO) 0.9 % (0.0-2.0); EOSINOPHILS % (AUTO) 0.3 % (0.0-4.0); HEMATOCRIT 25.9 % (36-54); HEMOGLOBIN 8.4 g/dL (14.0-18.0); LYMPHOCYTES # (AUTO) 2.3 K/uL (1.0-5.5); LYMPHOCYTES % (AUTO) 18.7 % (20.5-51.5); MEAN CORPUSCULAR HEMOGLOBIN 30 pg (27-31); MEAN CORPUSCULAR HGB CONC 32 % (32-36); MEAN CORPUSCULAR VOLUME 93 fL (79.0-98.0); MONOCYTES % (AUTO) 8.5 % (1.7-9.3); NEUTROPHILS # (AUTO) 8.6 K/uL (1.8-7.7); NEUTROPHILS % (AUTO) 71.6 % (40.0-70.0); PLATELET COUNT (AUTO) 327 K/uL (130-430); RED CELL DISTRIBUTION WIDTH 17.6 % (9.0-15.0)
[2020-11-14 07:43] LABS: ALBUMIN 1.5 g/dL (3.4-4.8); CALCIUM 8.3 mg/dL (8.4-11.0); CREATININE 0.6 mg/dL (0.55-1.30); POTASSIUM 4.1 mmol/L (3.5-5.1)
[2020-11-14] MEDS: ALBUTEROL MDI INHALATION 8 GM INH INH SCH ×5 (08:13→23:44)
[2020-11-14 08:28] LABS: TOTAL BILIRUBIN 0.2 mg/dL (0.0-1.0)
[2020-11-14] MEDS: INSULIN GLARGINE 100 UNITS/ML 10 ML VIAL SUBCUT SCH ×2 (08:42→21:00)
[2020-11-14] MEDS: LISINOPRIL 10 MG TABLET (PRINIVIL) PO SCH (09:00)
[2020-11-14] MEDS: ENOXAPARIN SODIUM 40 MG/0.4 ML SYRINGE SUBCUT SCH (09:00)
[2020-11-14] MEDS: MULTIVITAMINS TAB 1 TABLET GT SCH ×3 (09:08→21:10)
[2020-11-14] MEDS: CHOLECALCIFEROL (VITAMIN D3) 5,000 UNIT TABLET PO SCH (09:08)
[2020-11-14] MEDS: LevETIRAcetam 500 MG/5 ML UDC ORAL LIQUID GT SCH ×2 (09:08→21:10)
[2020-11-14] MEDS: CYANOCOBALAMIN 1000 mCg TABLET JT SCH (09:08)
[2020-11-14] MEDS: THIAMINE HCL 100 MG TABLET GT SCH (09:08)
[2020-11-14] MEDS: BALSAM PERU/CASTOR OIL 60 GM OINT...G. TP SCH (09:08)
[2020-11-14] MEDS: FERROUS SULFATE 300 MG/5 ML UDC GT SCH ×3 (09:09→21:10)
[2020-11-14 09:26] VITALS: BP_SYST 147
[2020-11-14 11:37] VITALS: BP_SYST 133
[2020-11-14 15:35] VITALS: BP_SYST 133
[2020-11-14] MEDS: NACL 0.9% 1,000 ML IV SCH (17:44)
[2020-11-14 20:00] VITALS: BP_SYST 129
[2020-11-15] VITALS: BP_SYST 123
[2020-11-15] MEDS: METOCLOPRAMIDE HCL 10 MG/2 ML VIAL IVP SCH ×4 (00:15→18:12)
[2020-11-15] MEDS: INSULIN REGULAR, HUMAN 100 UNITS/ML, 10 ML VIAL (humuLIN R) SUBCUT PRN ×4 (00:20→18:25)
[2020-11-15] MEDS: ALBUTEROL MDI INHALATION 8 GM INH INH SCH ×8 (03:00→23:58)
[2020-11-15] MEDS: DILTIAZEM HCL 30 MG TABLET GT SCH ×3 (07:15→23:15)
[2020-11-15 08:00] VITALS: BP_SYST 147
[2020-11-15] MEDS: MULTIVITAMINS TAB 1 TABLET GT SCH ×3 (09:15→21:30)
[2020-11-15] MEDS: CYANOCOBALAMIN 1000 mCg TABLET JT SCH (09:15)
[2020-11-15] MEDS: FERROUS SULFATE 300 MG/5 ML UDC GT SCH ×3 (09:15→21:30)
[2020-11-15] MEDS: THIAMINE HCL 100 MG TABLET GT SCH (09:16)
[2020-11-15] MEDS: BALSAM PERU/CASTOR OIL 60 GM OINT...G. TP SCH (09:16)
[2020-11-15] MEDS: CHOLECALCIFEROL (VITAMIN D3) 5,000 UNIT TABLET PO SCH (09:16)
[2020-11-15] MEDS: ENOXAPARIN SODIUM 40 MG/0.4 ML SYRINGE SUBCUT SCH (09:21)
[2020-11-15] MEDS: INSULIN GLARGINE 100 UNITS/ML 10 ML VIAL SUBCUT SCH ×2 (09:22→21:30)
[2020-11-15] MEDS: LevETIRAcetam 500 MG/5 ML UDC ORAL LIQUID GT SCH ×2 (10:00→21:30)
[2020-11-15] MEDS: LISINOPRIL 10 MG TABLET (PRINIVIL) PO SCH (10:13)
[2020-11-15 12:00] VITALS: BP_SYST 133
[2020-11-15 12:26] VITALS: BP_SYST 123
[2020-11-15 14:00] LABS: BILIRUBIN,URINE NEGATIVE (NEGATIVE); BLOOD, URINE 1+ (NEGATIVE); COLOR,URINE YELLOW (YELLOW); GLUCOSE,URINE 1+ (NEGATIVE); KETONES,URINE TRACE (NEGATIVE); LEUKOCYTE ESTERASE ,URINE NEGATIVE (NEGATIVE); NITRITE, URINE NEGATIVE (NEGATIVE); PH,URINE 5.5 (5.0-8.0); PROTEIN URINE 1+ (NEGATIVE); UROBILINOGEN,URINE 0.2 (0.2-1.0)
[2020-11-15 14:02] LABS: CLARITY/URINE HAZY (CLEAR)
[2020-11-15 14:08] LABS: BACTERIA,URINE MODERATE /HPF (None Seen); MUCUS,URINE 1+ /LPF (None Seen); WBC,URINE 0-3 /HPF (0-3)
[2020-11-15 16:00] VITALS: BP_SYST 124
[2020-11-15] MEDS: NACL 0.9% 1,000 ML IV SCH (16:51)
[2020-11-15 20:00] VITALS: BP_SYST 119
[2020-11-15] MEDS: DOXYCYCLINE HYCLATE 100 MG CAPSULE PO SCH (22:50)
[2020-11-16] VITALS: BP_SYST 106
[2020-11-16] MEDS ORDERED: nitrofurantoin macrocrystaL 50 MG CAPSULE PO SCH
[2020-11-16] MEDS: ALBUTEROL MDI INHALATION 8 GM INH INH SCH ×7 (03:00→23:51)
[2020-11-16] MEDS: INSULIN REGULAR, HUMAN 100 UNITS/ML, 10 ML VIAL (humuLIN R) SUBCUT PRN ×4 (06:10→18:57)
[2020-11-16] MEDS: METOCLOPRAMIDE HCL 10 MG/2 ML VIAL IVP SCH ×4 (06:20→18:56)
[2020-11-16] MEDS: nitrofurantoin macrocrystaL 50 MG CAPSULE PO SCH ×3 (06:54→18:56)
[2020-11-16] MEDS: DILTIAZEM HCL 30 MG TABLET GT SCH ×3 (07:15→23:15)
[2020-11-16 07:16] LABS: BASOPHILS # (AUTO) 0.2 K/uL (0.0-0.2); BASOPHILS % (AUTO) 1.4 % (0.0-2.0); EOSINOPHILS # (AUTO) 0.1 K/uL (0.0-0.4); EOSINOPHILS % (AUTO) 0.8 % (0.0-4.0); HEMATOCRIT 22.8 % (36-54); HEMOGLOBIN 7.4 g/dL (14.0-18.0); LYMPHOCYTES # (AUTO) 2.3 K/uL (1.0-5.5); LYMPHOCYTES % (AUTO) 17.4 % (20.5-51.5); MEAN CORPUSCULAR HEMOGLOBIN 31 pg (27-31); MEAN CORPUSCULAR HGB CONC 33 % (32-36); MEAN CORPUSCULAR VOLUME 94 fL (79.0-98.0); MONOCYTES # (AUTO) 1.1 K/uL (0.0-1.0); MONOCYTES % (AUTO) 8.5 % (1.7-9.3); NEUTROPHILS # (AUTO) 9.6 K/uL (1.8-7.7); PLATELET COUNT (AUTO) 262 K/uL (130-430); RED BLOOD CELL COUNT(AUTO) 2.43 MIL/uL (4.2-6.2); RED CELL DISTRIBUTION WIDTH 18.2 % (9.0-15.0); WHITE BLOOD COUNT (AUTO) 13.3 K/uL (4.8-10.8)
[2020-11-16 07:42] LABS: ALBUMIN 1.3 g/dL (3.4-4.8); CALCIUM 8.1 mg/dL (8.4-11.0); CREATININE 0.52 mg/dL (0.55-1.30); POTASSIUM 3.7 mmol/L (3.5-5.1); TOTAL BILIRUBIN 0.2 mg/dL (0.0-1.0)
[2020-11-16 08:00] VITALS: BP_SYST 148
[2020-11-16 08:44] LABS: NEUTROPHILS % (AUTO) 71.9 % (40.0-70.0)
[2020-11-16] MEDS: ENOXAPARIN SODIUM 40 MG/0.4 ML SYRINGE SUBCUT SCH (09:36)
[2020-11-16] MEDS: INSULIN GLARGINE 100 UNITS/ML 10 ML VIAL SUBCUT SCH ×2 (09:36→21:25)
[2020-11-16] MEDS: CYANOCOBALAMIN 1000 mCg TABLET JT SCH (09:37)
[2020-11-16] MEDS: FERROUS SULFATE 300 MG/5 ML UDC GT SCH ×3 (09:37→21:25)
[2020-11-16] MEDS: CHOLECALCIFEROL (VITAMIN D3) 5,000 UNIT TABLET PO SCH (09:37)
[2020-11-16] MEDS: THIAMINE HCL 100 MG TABLET GT SCH (09:37)
[2020-11-16] MEDS: LISINOPRIL 10 MG TABLET (PRINIVIL) PO SCH (09:37)
[2020-11-16] MEDS: DOXYCYCLINE HYCLATE 100 MG CAPSULE PO SCH ×2 (09:37→21:25)
[2020-11-16] MEDS: LevETIRAcetam 500 MG/5 ML UDC ORAL LIQUID GT SCH ×2 (09:37→21:25)
[2020-11-16] MEDS: MULTIVITAMINS TAB 1 TABLET GT SCH ×3 (09:37→21:25)
[2020-11-16] MEDS: BALSAM PERU/CASTOR OIL 60 GM OINT...G. TP SCH (09:38)
[2020-11-16 11:25] VITALS: BP_SYST 132
[2020-11-16] MEDS: EPOETIN ALFA 4,000 UNITS/ML VIAL SUBCUT SCH (12:00)
[2020-11-16] MEDS: NACL 0.9% 1,000 ML IV SCH (14:52)
[2020-11-16 15:38] VITALS: BP_SYST 133
[2020-11-17] MEDS: INSULIN REGULAR, HUMAN 100 UNITS/ML, 10 ML VIAL (humuLIN R) SUBCUT PRN ×5 (00:20→23:18)
[2020-11-17 00:49] VITALS: BP_SYST 139
[2020-11-17] MEDS: ALBUTEROL MDI INHALATION 8 GM INH INH SCH ×8 (02:50→23:37)
[2020-11-17] MEDS: nitrofurantoin macrocrystaL 50 MG CAPSULE PO SCH ×3 (06:10→12:52)
[2020-11-17] MEDS: METOCLOPRAMIDE HCL 10 MG/2 ML VIAL IVP SCH ×5 (06:10→23:18)
[2020-11-17] MEDS: DILTIAZEM HCL 30 MG TABLET GT SCH ×3 (07:15→23:18)
[2020-11-17 08:00] VITALS: BP_SYST 139
[2020-11-17] MEDS: LISINOPRIL 10 MG TABLET (PRINIVIL) PO SCH (09:25)
[2020-11-17] MEDS: LevETIRAcetam 500 MG/5 ML UDC ORAL LIQUID GT SCH ×2 (09:26→23:22)
[2020-11-17] MEDS: THIAMINE HCL 100 MG TABLET GT SCH (09:26)
[2020-11-17] MEDS: CHOLECALCIFEROL (VITAMIN D3) 5,000 UNIT TABLET PO SCH (09:26)
[2020-11-17] MEDS: FERROUS SULFATE 300 MG/5 ML UDC GT SCH ×3 (09:26→23:16)
[2020-11-17] MEDS: MULTIVITAMINS TAB 1 TABLET GT SCH ×3 (09:26→23:17)
[2020-11-17] MEDS: DOXYCYCLINE HYCLATE 100 MG CAPSULE PO SCH (09:26)
[2020-11-17] MEDS: CYANOCOBALAMIN 1000 mCg TABLET JT SCH (09:27)
[2020-11-17] MEDS: ENOXAPARIN SODIUM 40 MG/0.4 ML SYRINGE SUBCUT SCH (09:27)
[2020-11-17] MEDS: BALSAM PERU/CASTOR OIL 60 GM OINT...G. TP SCH (09:27)
[2020-11-17] MEDS: INSULIN GLARGINE 100 UNITS/ML 10 ML VIAL SUBCUT SCH (10:23)
[2020-11-17 12:16] VITALS: BP_SYST 141
[2020-11-17] MEDS: cefTRIAXone 1 GM in D5W 50 ML IV SCH (15:00)
[2020-11-17 16:19] VITALS: BP_SYST 123
[2020-11-17] MEDS: NACL 0.9% 1,000 ML IV SCH (16:26)
[2020-11-17 16:58] LABS: BASOPHILS # (AUTO) 0.1 K/uL (0.0-0.2); BASOPHILS % (AUTO) 0.7 % (0.0-2.0); HEMATOCRIT 24.1 % (36-54); HEMOGLOBIN 7.7 g/dL (14.0-18.0); LYMPHOCYTES # (AUTO) 1.6 K/uL (1.0-5.5); MEAN CORPUSCULAR HEMOGLOBIN 30 pg (27-31); MEAN CORPUSCULAR HGB CONC 32 % (32-36); MEAN CORPUSCULAR VOLUME 94 fL (79.0-98.0); MONOCYTES # (AUTO) 0.7 K/uL (0.0-1.0); MONOCYTES % (AUTO) 4.3 % (1.7-9.3); NEUTROPHILS # (AUTO) 13.8 K/uL (1.8-7.7); PLATELET COUNT (AUTO) 219 K/uL (130-430); RED BLOOD CELL COUNT(AUTO) 2.57 MIL/uL (4.2-6.2); RED CELL DISTRIBUTION WIDTH 18.4 % (9.0-15.0); WHITE BLOOD COUNT (AUTO) 16.2 K/uL (4.8-10.8)
[2020-11-17 17:36] LABS: CALCIUM 8.3 mg/dL (8.4-11.0); CREATININE 0.73 mg/dL (0.55-1.30); POTASSIUM 4.5 mmol/L (3.5-5.1)
[2020-11-17 17:37] LABS: TOTAL IRON BIND. CAPACITY 153 ug/dL (250-450)
[2020-11-17] MEDS ORDERED: INSULIN GLARGINE 100 UNITS/ML 10 ML VIAL SUBCUT SCH (21:00)
[2020-11-17 22:00] VITALS: BP_SYST 148
[2020-11-18] VITALS (7 sets, daily range): BP systolic 135–154
[2020-11-18] MEDS: ALBUTEROL MDI INHALATION 8 GM INH INH SCH ×6 (04:02→23:28)
[2020-11-18] MEDS: METOCLOPRAMIDE HCL 10 MG/2 ML VIAL IVP SCH ×4 (06:53→23:23)
[2020-11-18] MEDS: INSULIN REGULAR, HUMAN 100 UNITS/ML, 10 ML VIAL (humuLIN R) SUBCUT PRN ×4 (06:53→23:23)
[2020-11-18 06:54] LABS: BASOPHILS # (AUTO) 0.1 K/uL (0.0-0.2); BASOPHILS % (AUTO) 0.9 % (0.0-2.0); EOSINOPHILS % (AUTO) 0.1 % (0.0-4.0); HEMATOCRIT 23.5 % (36-54); HEMOGLOBIN 7.6 g/dL (14.0-18.0); MEAN CORPUSCULAR HEMOGLOBIN 30 pg (27-31); MEAN CORPUSCULAR HGB CONC 32 % (32-36); MEAN CORPUSCULAR VOLUME 94 fL (79.0-98.0); MONOCYTES # (AUTO) 0.9 K/uL (0.0-1.0); MONOCYTES % (AUTO) 7.2 % (1.7-9.3); NEUTROPHILS # (AUTO) 9.5 K/uL (1.8-7.7); NEUTROPHILS % (AUTO) 75.8 % (40.0-70.0); PLATELET COUNT (AUTO) 280 K/uL (130-430); RED BLOOD CELL COUNT(AUTO) 2.51 MIL/uL (4.2-6.2); WHITE BLOOD COUNT (AUTO) 12.5 K/uL (4.8-10.8)
[2020-11-18] MEDS: DILTIAZEM HCL 30 MG TABLET GT SCH ×3 (06:55→22:20)
[2020-11-18 07:36] LABS: CALCIUM 8.5 mg/dL (8.4-11.0); CREATININE 0.61 mg/dL (0.55-1.30); POTASSIUM 4.1 mmol/L (3.5-5.1)
[2020-11-18] MEDS ORDERED: INSULIN GLARGINE 100 UNITS/ML 10 ML VIAL SUBCUT SCH ×2 (09:00→21:00)
[2020-11-18] MEDS: BALSAM PERU/CASTOR OIL 60 GM OINT...G. TP SCH (10:15)
[2020-11-18] MEDS: LevETIRAcetam 500 MG/5 ML UDC ORAL LIQUID GT SCH ×2 (10:15→22:16)
[2020-11-18] MEDS: CYANOCOBALAMIN 1000 mCg TABLET JT SCH (10:15)
[2020-11-18] MEDS: ENOXAPARIN SODIUM 40 MG/0.4 ML SYRINGE SUBCUT SCH (10:15)
[2020-11-18] MEDS: LISINOPRIL 10 MG TABLET (PRINIVIL) PO SCH (10:15)
[2020-11-18] MEDS: MULTIVITAMINS TAB 1 TABLET GT SCH ×3 (10:15→22:16)
[2020-11-18] MEDS: FERROUS SULFATE 300 MG/5 ML UDC GT SCH ×3 (10:15→22:16)
[2020-11-18] MEDS: CHOLECALCIFEROL (VITAMIN D3) 5,000 UNIT TABLET PO SCH (10:15)
[2020-11-18] MEDS: THIAMINE HCL 100 MG TABLET GT SCH (10:15)
[2020-11-18] MEDS: EPOETIN ALFA 4,000 UNITS/ML VIAL SUBCUT SCH (12:51)
[2020-11-18] MEDS: SOD FERRIC GLUC COMPLEX/SUC 125 MG in NS 100 ML IV SCH (14:39)
[2020-11-18] MEDS: metroNIDAZOLE 250 MG TABLET GT SCH ×2 (14:39→22:16)
[2020-11-18] MEDS: cefTRIAXone 1 GM in D5W 50 ML IV SCH (16:00)
[2020-11-18] MEDS: INSULIN NPH 100 UNITS/ML 10 ML VIAL SUBCUT SCH (16:22)
[2020-11-18] MEDS: NACL 0.9% 1,000 ML IV SCH (17:15)
[2020-11-18] MEDS ORDERED: DILTIAZEM HCL 30 MG TABLET ONE (22:22)
[2020-11-19] MEDS: ALBUTEROL MDI INHALATION 8 GM INH INH SCH ×4 (03:10→15:30)
[2020-11-19] MEDS ORDERED: DILTIAZEM HCL 30 MG TABLET ONE ×2 (06:16→23:26)
[2020-11-19] MEDS: DILTIAZEM HCL 30 MG TABLET GT SCH ×3 (06:45→23:15)
[2020-11-19] MEDS: METOCLOPRAMIDE HCL 10 MG/2 ML VIAL IVP SCH ×3 (06:45→18:08)
[2020-11-19] MEDS: INSULIN REGULAR, HUMAN 100 UNITS/ML, 10 ML VIAL (humuLIN R) SUBCUT PRN ×3 (06:45→18:09)
[2020-11-19] MEDS: metroNIDAZOLE 250 MG TABLET GT SCH ×3 (06:45→21:16)
[2020-11-19] MEDS: INSULIN NPH 100 UNITS/ML 10 ML VIAL SUBCUT SCH ×2 (06:45→16:13)
[2020-11-19] MEDS: ACETAMINOPHEN 650 MG/20.3 ML UDC GT PRN (06:45)
[2020-11-19 08:00] VITALS: BP_SYST 135
[2020-11-19] MEDS: BALSAM PERU/CASTOR OIL 60 GM OINT...G. TP SCH (09:01)
[2020-11-19] MEDS: MULTIVITAMINS TAB 1 TABLET GT SCH ×3 (09:01→21:16)
[2020-11-19] MEDS: CHOLECALCIFEROL (VITAMIN D3) 5,000 UNIT TABLET PO SCH (09:01)
[2020-11-19] MEDS: LISINOPRIL 10 MG TABLET (PRINIVIL) PO SCH (09:01)
[2020-11-19] MEDS: LevETIRAcetam 500 MG/5 ML UDC ORAL LIQUID GT SCH ×2 (09:01→21:16)
[2020-11-19] MEDS: THIAMINE HCL 100 MG TABLET GT SCH (09:01)
[2020-11-19] MEDS: FERROUS SULFATE 300 MG/5 ML UDC GT SCH ×3 (09:01→21:16)
[2020-11-19] MEDS: CYANOCOBALAMIN 1000 mCg TABLET JT SCH (09:01)
[2020-11-19] MEDS: ENOXAPARIN SODIUM 40 MG/0.4 ML SYRINGE SUBCUT SCH (09:15)
[2020-11-19 11:40] VITALS: BP_SYST 123
[2020-11-19] MEDS: SOD FERRIC GLUC COMPLEX/SUC 125 MG in NS 100 ML IV SCH (14:54)
[2020-11-19 15:35] VITALS: BP_SYST 141
[2020-11-19] MEDS: cefTRIAXone 1 GM in D5W 50 ML IV SCH (16:00)
[2020-11-19] MEDS: NACL 0.9% 1,000 ML IV SCH (16:12)
[2020-11-19 20:00] VITALS: BP_SYST 125
[2020-11-20] VITALS: BP_SYST 121
[2020-11-20] MEDS: DILTIAZEM HCL 30 MG TABLET GT SCH ×3 (00:32→15:46)
[2020-11-20] MEDS ORDERED: DILTIAZEM HCL 30 MG TABLET ONE (06:29)
[2020-11-20] MEDS: INSULIN NPH 100 UNITS/ML 10 ML VIAL SUBCUT SCH ×2 (06:45→17:00)
[2020-11-20] MEDS: INSULIN REGULAR, HUMAN 100 UNITS/ML, 10 ML VIAL (humuLIN R) SUBCUT PRN ×4 (06:45→19:01)
[2020-11-20] MEDS: METOCLOPRAMIDE HCL 10 MG/2 ML VIAL IVP SCH ×4 (06:45→17:30)
[2020-11-20] MEDS: metroNIDAZOLE 250 MG TABLET GT SCH (06:45)
[2020-11-20] MEDS: ALBUTEROL MDI INHALATION 8 GM INH INH SCH ×3 (07:18→16:25)
[2020-11-20 07:20] LABS: BASOPHILS # (AUTO) 0.1 K/uL (0.0-0.2); BASOPHILS % (AUTO) 0.7 % (0.0-2.0); EOSINOPHILS % (AUTO) 0.2 % (0.0-4.0); HEMATOCRIT 25.3 % (36-54); HEMOGLOBIN 8.1 g/dL (14.0-18.0); LYMPHOCYTES # (AUTO) 2.7 K/uL (1.0-5.5); LYMPHOCYTES % (AUTO) 17.9 % (20.5-51.5); MEAN CORPUSCULAR HEMOGLOBIN 30 pg (27-31); MEAN CORPUSCULAR HGB CONC 32 % (32-36); MEAN CORPUSCULAR VOLUME 94 fL (79.0-98.0); MONOCYTES # (AUTO) 1.3 K/uL (0.0-1.0); MONOCYTES % (AUTO) 8.2 % (1.7-9.3); NEUTROPHILS # (AUTO) 11.1 K/uL (1.8-7.7); PLATELET COUNT (AUTO) 254 K/uL (130-430); RED BLOOD CELL COUNT(AUTO) 2.69 MIL/uL (4.2-6.2); RED CELL DISTRIBUTION WIDTH 18.5 % (9.0-15.0); WHITE BLOOD COUNT (AUTO) 15.3 K/uL (4.8-10.8)
[2020-11-20 07:37] LABS: ALBUMIN 1.5 g/dL (3.4-4.8); CALCIUM 8.1 mg/dL (8.4-11.0); CREATININE 0.58 mg/dL (0.55-1.30); POTASSIUM 3.5 mmol/L (3.5-5.1); TOTAL BILIRUBIN 0.1 mg/dL (0.0-1.0)
[2020-11-20 08:00] VITALS: BP_SYST 135
[2020-11-20] MEDS: BALSAM PERU/CASTOR OIL 60 GM OINT...G. TP SCH (09:00)
[2020-11-20] MEDS: CYANOCOBALAMIN 1000 mCg TABLET JT SCH (10:00)
[2020-11-20] MEDS: MULTIVITAMINS TAB 1 TABLET GT SCH ×3 (10:00→22:40)
[2020-11-20] MEDS: FERROUS SULFATE 300 MG/5 ML UDC GT SCH ×3 (10:00→22:40)
[2020-11-20] MEDS: CHOLECALCIFEROL (VITAMIN D3) 5,000 UNIT TABLET PO SCH (10:00)
[2020-11-20] MEDS: ENOXAPARIN SODIUM 40 MG/0.4 ML SYRINGE SUBCUT SCH (10:00)
[2020-11-20] MEDS: LevETIRAcetam 500 MG/5 ML UDC ORAL LIQUID GT SCH ×2 (10:00→22:40)
[2020-11-20] MEDS: LISINOPRIL 10 MG TABLET (PRINIVIL) PO SCH (10:00)
[2020-11-20] MEDS: THIAMINE HCL 100 MG TABLET GT SCH (10:00)
[2020-11-20 11:37] VITALS: BP_SYST 133
[2020-11-20] MEDS: EPOETIN ALFA 4,000 UNITS/ML VIAL SUBCUT SCH (12:30)
[2020-11-20] MEDS: metroNIDAZOLE 250 mg/NS 50 ML IV SCH ×2 (14:00→22:40)
[2020-11-20] MEDS: SOD FERRIC GLUC COMPLEX/SUC 125 MG in NS 100 ML IV SCH (14:30)
[2020-11-20 15:45] VITALS: BP_SYST 145
[2020-11-20] MEDS: cefTRIAXone 1 GM in D5W 50 ML IV SCH (16:00)
[2020-11-20] MEDS: NACL 0.9% 1,000 ML IV SCH (17:15)
[2020-11-20 20:00] VITALS: BP_SYST 138
[2020-11-21] VITALS: BP_SYST 133
[2020-11-21] MEDS: DILTIAZEM HCL 30 MG TABLET GT SCH ×3 (00:08→15:30)
[2020-11-21] MEDS: INSULIN REGULAR, HUMAN 100 UNITS/ML, 10 ML VIAL (humuLIN R) SUBCUT PRN ×4 (00:32→19:34)
[2020-11-21] MEDS: METOCLOPRAMIDE HCL 10 MG/2 ML VIAL IVP SCH ×4 (00:32→17:30)
[2020-11-21] MEDS: INSULIN NPH 100 UNITS/ML 10 ML VIAL SUBCUT SCH ×4 (06:27→18:30)
[2020-11-21] MEDS: metroNIDAZOLE 250 mg/NS 50 ML IV SCH ×3 (06:27→21:25)
[2020-11-21 07:32] LABS: BASOPHILS # (AUTO) 0.1 K/uL (0.0-0.2); BASOPHILS % (AUTO) 0.6 % (0.0-2.0); HEMATOCRIT 27.2 % (36-54); HEMOGLOBIN 8.7 g/dL (14.0-18.0); LYMPHOCYTES # (AUTO) 2.4 K/uL (1.0-5.5); LYMPHOCYTES % (AUTO) 13.4 % (20.5-51.5); MEAN CORPUSCULAR HEMOGLOBIN 30 pg (27-31); MEAN CORPUSCULAR HGB CONC 32 % (32-36); MEAN CORPUSCULAR VOLUME 94 fL (79.0-98.0); MONOCYTES # (AUTO) 1.1 K/uL (0.0-1.0); MONOCYTES % (AUTO) 6.2 % (1.7-9.3); NEUTROPHILS # (AUTO) 14.3 K/uL (1.8-7.7); PLATELET COUNT (AUTO) 279 K/uL (130-430)
[2020-11-21] MEDS: ALBUTEROL MDI INHALATION 8 GM INH INH SCH ×3 (07:37→16:20)
[2020-11-21 08:00] VITALS: BP_SYST 147
[2020-11-21] MEDS: CYANOCOBALAMIN 1000 mCg TABLET JT SCH (08:58)
[2020-11-21] MEDS: MULTIVITAMINS TAB 1 TABLET GT SCH ×3 (08:58→21:25)
[2020-11-21] MEDS: FERROUS SULFATE 300 MG/5 ML UDC GT SCH ×3 (08:58→21:25)
[2020-11-21] MEDS: LevETIRAcetam 500 MG/5 ML UDC ORAL LIQUID GT SCH ×2 (08:58→21:25)
[2020-11-21] MEDS: THIAMINE HCL 100 MG TABLET GT SCH (08:58)
[2020-11-21] MEDS: LISINOPRIL 10 MG TABLET (PRINIVIL) PO SCH (08:59)
[2020-11-21] MEDS: CHOLECALCIFEROL (VITAMIN D3) 5,000 UNIT TABLET PO SCH (08:59)
[2020-11-21] MEDS: ENOXAPARIN SODIUM 40 MG/0.4 ML SYRINGE SUBCUT SCH (09:00)
[2020-11-21] MEDS: BALSAM PERU/CASTOR OIL 60 GM OINT...G. TP SCH (09:01)
[2020-11-21 09:05] LABS: CALCIUM 8.6 mg/dL (8.4-11.0); CREATININE 0.71 mg/dL (0.55-1.30); POTASSIUM 3.8 mmol/L (3.5-5.1)
[2020-11-21 11:15] LABS: NEUTROPHILS % (AUTO) 79.8 % (40.0-70.0)
[2020-11-21 11:38] VITALS: BP_SYST 141
[2020-11-21] MEDS: SOD FERRIC GLUC COMPLEX/SUC 125 MG in NS 100 ML IV SCH (15:11)
[2020-11-21 15:54] VITALS: BP_SYST 132
[2020-11-21] MEDS: NACL 0.9% 1,000 ML IV SCH (17:11)
[2020-11-21] MEDS: cefTRIAXone 1 GM in D5W 50 ML IV SCH (18:00)
[2020-11-21 20:00] VITALS: BP_SYST 140
[2020-11-22] VITALS: BP_SYST 146
[2020-11-22] MEDS: INSULIN REGULAR, HUMAN 100 UNITS/ML, 10 ML VIAL (humuLIN R) SUBCUT PRN ×4 (00:08→18:23)
[2020-11-22] MEDS: METOCLOPRAMIDE HCL 10 MG/2 ML VIAL IVP SCH ×4 (00:08→17:19)
[2020-11-22] MEDS: DILTIAZEM HCL 30 MG TABLET GT SCH ×4 (06:27→23:14)
[2020-11-22] MEDS: INSULIN NPH 100 UNITS/ML 10 ML VIAL SUBCUT SCH (06:27)
[2020-11-22] MEDS: metroNIDAZOLE 250 mg/NS 50 ML IV SCH ×4 (06:27→22:19)
[2020-11-22 06:53] LABS: BASOPHILS # (AUTO) 0.2 K/uL (0.0-0.2); BASOPHILS % (AUTO) 1.1 % (0.0-2.0); HEMATOCRIT 26.9 % (36-54); HEMOGLOBIN 8.4 g/dL (14.0-18.0); LYMPHOCYTES # (AUTO) 2.3 K/uL (1.0-5.5); LYMPHOCYTES % (AUTO) 16.2 % (20.5-51.5); MEAN CORPUSCULAR HEMOGLOBIN 30 pg (27-31); MEAN CORPUSCULAR HGB CONC 31 % (32-36); MEAN CORPUSCULAR VOLUME 96 fL (79.0-98.0); MONOCYTES # (AUTO) 1.1 K/uL (0.0-1.0); MONOCYTES % (AUTO) 7.9 % (1.7-9.3); NEUTROPHILS # (AUTO) 10.7 K/uL (1.8-7.7); NEUTROPHILS % (AUTO) 74.8 % (40.0-70.0); PLATELET COUNT (AUTO) 258 K/uL (130-430); RED BLOOD CELL COUNT(AUTO) 2.82 MIL/uL (4.2-6.2); RED CELL DISTRIBUTION WIDTH 19.6 % (9.0-15.0); WHITE BLOOD COUNT (AUTO) 14.3 K/uL (4.8-10.8)
[2020-11-22] MEDS: ALBUTEROL MDI INHALATION 8 GM INH INH SCH ×5 (07:20→23:14)
[2020-11-22 07:44] LABS: ALBUMIN 1.8 g/dL (3.4-4.8); CALCIUM 8.7 mg/dL (8.4-11.0); CREATININE 0.58 mg/dL (0.55-1.30); POTASSIUM 4.3 mmol/L (3.5-5.1); TOTAL BILIRUBIN 0.1 mg/dL (0.0-1.0)
[2020-11-22 08:00] VITALS: BP_SYST 140
[2020-11-22] MEDS: CYANOCOBALAMIN 1000 mCg TABLET JT SCH (08:31)
[2020-11-22] MEDS: MULTIVITAMINS TAB 1 TABLET GT SCH ×3 (08:32→22:19)
[2020-11-22] MEDS: LISINOPRIL 10 MG TABLET (PRINIVIL) PO SCH (08:32)
[2020-11-22] MEDS: FERROUS SULFATE 300 MG/5 ML UDC GT SCH ×3 (08:32→22:18)
[2020-11-22] MEDS: ENOXAPARIN SODIUM 40 MG/0.4 ML SYRINGE SUBCUT SCH (08:32)
[2020-11-22] MEDS: LevETIRAcetam 500 MG/5 ML UDC ORAL LIQUID GT SCH ×2 (08:32→22:19)
[2020-11-22] MEDS: THIAMINE HCL 100 MG TABLET GT SCH (08:32)
[2020-11-22] MEDS: CHOLECALCIFEROL (VITAMIN D3) 5,000 UNIT TABLET PO SCH (08:33)
[2020-11-22] MEDS: BALSAM PERU/CASTOR OIL 60 GM OINT...G. TP SCH (10:00)
[2020-11-22] MEDS: EPOETIN ALFA 4,000 UNITS/ML VIAL SUBCUT SCH (12:14)
[2020-11-22 12:44] VITALS: BP_SYST 164
[2020-11-22] MEDS ORDERED: metroNIDAZOLE 250 MG TABLET PO ONE (14:00)
[2020-11-22] MEDS: cefTRIAXone 1 GM in D5W 50 ML IV SCH (15:00)
[2020-11-22 16:00] VITALS: BP_SYST 145
[2020-11-22] MEDS: NACL 0.9% 1,000 ML IV SCH (16:58)
[2020-11-22] MEDS ORDERED: INSULIN NPH 100 UNITS/ML 10 ML VIAL SUBCUT SCH (17:00)
[2020-11-22] MEDS: ACETAMINOPHEN 650 MG/20.3 ML UDC GT PRN ×2 (18:23→22:22)
[2020-11-22 20:00] VITALS: BP_SYST 110
[2020-11-22] MEDS: metroNIDAZOLE 250 MG TABLET PO SCH (22:19)
[2020-11-22 23:10] VITALS: BP_SYST 99
[2020-11-23] MEDS: METOCLOPRAMIDE HCL 10 MG/2 ML VIAL IVP SCH ×2 (02:22→06:36)
[2020-11-23] MEDS: INSULIN REGULAR, HUMAN 100 UNITS/ML, 10 ML VIAL (humuLIN R) SUBCUT PRN ×2 (03:21→06:38)
[2020-11-23] MEDS: ALBUTEROL MDI INHALATION 8 GM INH INH SCH ×2 (04:06→07:37)
[2020-11-23 04:33] VITALS: BP_SYST 71
[2020-11-23 05:00] VITALS: BP_SYST 65
[2020-11-23] MEDS ORDERED: NOREPINEPHRINE BITARTRATE 4 MG in NS 246 ML IV PRN (05:00)
[2020-11-23] MEDS ORDERED: NOREPINEPHRINE 4 MG/4 ML VIAL IV ONE (05:07)
[2020-11-23 06:00] VITALS: BP_SYST 89
[2020-11-23] MEDS: DILTIAZEM HCL 30 MG TABLET GT SCH (06:12)
[2020-11-23] MEDS ORDERED: NACL 0.9% 2,000 ML IV ONE (06:30)
[2020-11-23] MEDS ORDERED: PIPERACILLIN/TAZO 3.375/DEX-IS 50 ML IV SCH (06:30)
[2020-11-23] MEDS: INSULIN NPH 100 UNITS/ML 10 ML VIAL SUBCUT SCH (06:37)
[2020-11-23] MEDS: metroNIDAZOLE 250 MG TABLET PO SCH (06:38)
[2020-11-23] MEDS ORDERED: VANCOMYCIN HCL 1.25 GM/NS 250 ML IV ONE (07:00)
[2020-11-23 07:37] VITALS: BP_SYST 86
[2020-11-23] MEDS ORDERED: VANCOMYCIN HCL 1,250 MG in NS 250 ML IV SCH (09:00)
== END 2020-11-23 07:52 | disposition expired | DRG 4 ==
LOC: SED 18:32 → STU 10-01 01:15 → SIC 10-01 01:59 → STU 11-01 19:20 → SIC 11-23 07:44
PROVIDERS: ADMIT Internal Medicine; ATTEND Internal Medicine
PROC: 5A1955Z Respiratory Ventilation, Greater than 96 Consecutive Hours (ICD-10-PCS; principal; 2020-10-02)
PROC: 4A00X4Z Measurement of Central Nervous Electrical Activity, External Approach (ICD-10-PCS; 2020-10-13)
PROC: 0B110F4 Bypass Trachea to Cutaneous with Tracheostomy Device, Open Approach (ICD-10-PCS; 2020-10-28)
PROC: 0DH63UZ Insertion of Feeding Device into Stomach, Percutaneous Approach (ICD-10-PCS; 2020-10-28)
DX: A41.9 Sepsis, unspecified organism (principal); E11.10 Type 2 diabetes mellitus with ketoacidosis without coma; G93.41 Metabolic encephalopathy; N17.0 Acute kidney failure with tubular necrosis; E43 Unspecified severe protein-calorie malnutrition; J15.6 Pneumonia due to other Gram-negative bacteria; J96.21 Acute and chronic respiratory failure with hypoxia; R65.21 Severe sepsis with septic shock; I63.9 Cerebral infarction, unspecified; U07.1 COVID-19; J12.82 Pneumonia due to coronavirus disease 2019; J44.1 Chronic obstructive pulmonary disease with (acute) exacerbation; G93.1 Anoxic brain damage, not elsewhere classified; D68.9 Coagulation defect, unspecified; I48.20 Chronic atrial fibrillation, unspecified; I82.621 Acute embolism and thrombosis of deep veins of right upper extremity; E87.0 Hyperosmolality and hypernatremia; E87.1 Hypo-osmolality and hyponatremia; J44.0 Chronic obstructive pulmonary disease with (acute) lower respiratory infection; Z20.822 Contact with and (suspected) exposure to COVID-19; I46.9 Cardiac arrest, cause unspecified; E87.5 Hyperkalemia; E87.6 Hypokalemia; D72.810 Lymphocytopenia; D69.6 Thrombocytopenia, unspecified; E66.9 Obesity, unspecified; I10 Essential (primary) hypertension; L89.159 Pressure ulcer of sacral region, unspecified stage; L89.309 Pressure ulcer of unspecified buttock, unspecified stage; D64.89 Other specified anemias; E78.5 Hyperlipidemia, unspecified; R13.10 Dysphagia, unspecified; Z51.5 Encounter for palliative care; I80.9 Phlebitis and thrombophlebitis of unspecified site; Z78.9 Other specified health status; Z86.718 Personal history of other venous thrombosis and embolism; Z79.01 Long term (current) use of anticoagulants; Z68.30 Body mass index [BMI] 30.0-30.9, adult; Z86.73 Personal history of transient ischemic attack (TIA), and cerebral infarction without residual deficits; Z87.891 Personal history of nicotine dependence
CPT/HCPCS: 36415; 36600; 70450-TC; 71045; 76376; 80048; 80053; 80061; 80307; 81000-TC; 82009-TC; 82140-TC; 82550-TC; 82728; 82803-TC; 82962; 83036; 83540-TC; 83550-TC; 83605; 83690-TC; 83735-TC; 84100-TC; 84134; 84484; 85007; 85025; 85027; 85044-TC; 85379; 85384-TC; 85610-TC; 85730-TC; 86140; 86704; 86706; 86803; 86886; 86900; 86901; 87040-TC; 87070-TC; 87081; 87205-TC; 87340; 87536; 92950; 93005; 93306; 93880; 93970; 94003; 94640; 94760; 95816; 96365; 96368; 99285; C1751; C9113; G0480; G0481; G0482; J0360; J0456; J0690; J0692; J0696; J0885; J1100; J1644; J1650; J1815; J1940; J1953; J1956; J2060; J2270; J2543; J2704; J2765; J2916; J3010; J3370; J3411; J3480; J3490; J7030; J7050; J7060; J7120; U0003